=== PATIENT | male | born 1965 | race Caucasian/White ===

== ENCOUNTER 2018-08-17 05:40 | Emergency (ER) | payer SELFPAY ==
[2018-08-17] VITALS (85 sets, daily range): BP systolic 160–228; BP diastolic 92–122; PULSE 65–86; RESP 12–27; TEMP 36.4–36.7; O2SAT 93–99
--- NOTE | 2018-08-17 06:08 | W.ED.GENAD ---
Discharge Plan Disposition Patient Disposition: [facility] Condition: Stable Discharge Details Chief Complaint: Chest Pain Clinical Impression: NSTEMI (non-ST elevated myocardial infarction), Hypertensive urgency Primary Care Provider: Higinio Rasmussen ED Provider: Lolly Yu Home Meds and New Rx's Prescriptions: No Action aspirin [Aspir-81] 81 mg tablet,delayed release (DR/EC) 81 mg PO DAILY RF: 0 atorvastatin 80 mg tablet 80 mg PO QHS RF: 0 carvedilol 12.5 mg tablet 12.5 mg PO BID RF: 0 nitroglycerin 0.4 mg tablet, sublingual 0.4 mg SL Q5-15M PRNRF: 0 Discharge Data Discharge Date/Time-TO BE ENTERED AT DEPARTURE: 08/17/18 13:58 Discharge Physician: Mirina Noble Medical Decision Making <Mirian Noble DO - Last Filed: 08/18/18 03:40> 52-year-old male with a history of chronic tobacco smoking and daily alcohol use who presents with 2 episodes of substernal chest pain since yesterday. EKG notes a rate of 81, sinus, T wave inversion in aVL, there is questionable <1mm ST depression in II and aVF no consistent acute ST depression or elevation. No old EKG to compare. BP significantly elevated on arrival. 222/113. states patient has a history of whitecoat hypertension but states this is higher than usual. Remainder vitals within normal limits. Patient appears anxious. Lungs clear to auscultation. No lower extremity edema. Differential diagnosis includes ACS, anxiety, PE, GERD, gastritis, pancreatitis, hypertensive urgency, dissection, pneumonia. Denies complaint of tearing chest pain so not consistent with dissection. Chest pain is nonexertional and occurred while drinking coffee this morning, so could be possibly of a GI etiology. He admits to difficulty sleeping last night and awoke 2 mornings with pain, so could be more consistent with anxiety which could explain his hypertension. Heart score 2. Will place an IV, cardiac work-up, CT chest, and give a dose of Ativan and reassess. 0650 --BP 160/111. Labs reviewed and unremarkable. Normal white blood cell count. Troponin negative. Lipase negative. 0745 --CT negative for acute findings. Patient states he is completely pain-free. BP improved 179/97. Patient is agreeable to stay for second troponin which will be at 930. 0800 --Case endorsed to Dr. Yu to follow-up on second troponin and final disposition. Medical Records Medical records reviewed: Yes I reviewed the patient's medical records. Imaging Data Radiologic Study: Radiologist's impression: CT Angiography Chest With Contrast EXAM DATE/TIME: 08/17/2018 6:10 AM CLINICAL HISTORY: 52 years old, male; Other: Substernal chest pain, R/O pe/dissection TECHNIQUE: Imaging protocol: Axial computed tomographic angiography images of the chest with intravenous contrast using CT angiography protocol. Coronal and sagittal reformatted images were created and reviewed. 3D rendering: MIP reconstructed images were created and reviewed. Radiation optimization: All CT scans at this facility use at least one of these dose optimization techniques: automated exposure control; mA and/or kV adjustment per patient size (includes targeted exams where dose is matched to clinical indication); or iterative reconstruction. Contrast material: OMNIPAQUE 350; Contrast volume: 67 ml; Contrast route: IV; COMPARISON: No relevant prior studies available. FINDINGS: Pulmonary arteries: No evidence of acute pulmonary embolism. Aorta: Aorta normal caliber without aneurysm, dissection or disruption. Lungs: Mild changes of paraseptal emphysema most pronounced in the lung apices. No consolidative pneumonia or pulmonary edema. Minimal dependent basilar atelectasis. Pleural space: No pleural effusions. No pneumothorax. Heart: Cardiac size normal. No pericardial effusion. No right heart strain. Lymph nodes: Unremarkable. No enlarged lymph nodes. Bones/joints: Mild degenerative changes noted throughout the spine. Soft tissues: Unremarkable. IMPRESSION: 1. No evidence of acute pulmonary embolism. 2. Cardiac size normal. No pericardial effusion. No right heart strain. 3. Aorta normal caliber without aneurysm, dissection or disruption. 4. Mild changes of paraseptal emphysema most pronounced in the lung apices. No consolidative pneumonia or pulmonary edema. Minimal dependent basilar atelectasis. Lab Data Lab results reviewed: Yes I reviewed the patient's lab results. ECG Data Attestation: I personally reviewed and interpreted this ECG (s) as follows: Interpretation: rate of 81, sinus, TWI in aVL, questionable < 1mm ST depression in II and aVF but no acute ST elevation or depression. QTc 448, QRS 100. <Lolly Yu MD - Last Filed: 08/25/18 08:24> Wesley Edward is a 52-year-old man without history of major medical problems who presented to the emergency department with chest pain. Patient was signed out to me by Dr. Noble after initial presentation and work-up with repeat troponin and repeat EKG pending. Repeat troponin positive. Patient reassessed. He states he is currently pain-free and asymptomatic. He reports he feels very well and in his usual state of health. Blood pressure 180/103. [facility] transfer center contacted after reassessment of patient at 10:20 AM, EKG is faxed, awaiting callback from cardiology. Plan for aspirin, heparin. Repeat EKG shows [address] elevation V2 V3, mild inferior and lateral ST depression, no STEMI. We will continue to monitor. Called back by cardiology team at [facility], who accepts patient (accepting physician Dr. Whitney), requests heparin bolus and drip, Plavix 300 mg, 25 mg p.o. metoprolol. Awaiting bed assignment for transfer, I am told by [facility] that they anticipate bed opening shortly this afternoon. Patient continues to remain asymptomatic, pain-free on reassessment. Pt now has bed assignment. Pt continues to report that he feels well and is asymptomatic. Plan for transfer. Repeat troponin >7, EKG repeated, no STEMI. Repeat EKG faxed to transfer center, contacted [facility] cardi[place] team and discussed increase in trop, Pt remains asymptomatic. No further recs at this time. Pt left ED without issue, asymptomatic. Call from EMS after Pt left ED for BP >200/120, Pt without symptoms. I requested SLNG, nitro gtt as needed for BP in HTN emergency range given elevated trop. Medical Records Medical records reviewed: Yes I reviewed the patient's medical records. Lab Data Lab results reviewed: Yes I reviewed the patient's lab results. ECG Data Attestation: I personally reviewed and interpreted this ECG (s) as follows: Interpretation: EKG 9:35 shows sinus rhythm 73 with normal axis, 1mm ALEJANDRINA V2, V3, inferior/lateral STD, no STEMI, non-diagnostic EKG EKG 13:42 shows sinus rhythm 65 with normal axis 1mm ALEJANDRINA v2, V3, STD II, no STEMI, non-diagnostic EKG HPI <Mirian Noble, DO - Last Filed: 08/18/18 03:40> General Mode of arrival: ambulatory. Date/Time Provider Initiated Documentation: 08/17/18 05:51. Limitations to Documentation: no limitations. Information obtained by: patient. HPI Narrative: Patient is a 52-year-old male with a history of chronic tobacco smoking and daily alcohol use who presents with substernal chest pain since yesterday. Patient states he was laying in bed when he developed substernal chest pressure which was present for 1 hour and then resolved. Patient states he awoke this morning at 430 and began drinking coffee and the chest pain returned. He states this morning it felt like a burning chest pain going up through his chest. He states the pain is still present and currently 9/10. He denies any radiation of pain. He admits to shortness of breath with his chest pain yesterday as well as today. He states the chest pain resolved on its own yesterday without any aggravating or alleviating factors. He denies any aggravating or alleviating factors today. He denies any fever, cough, nausea, vomiting, dizziness, recent travel, recent surgery, leg pain or swelling. He also denies any history of anxiety or recent stress. Related Data Home Medications Medication Instructions Recorded Confirmed aspirin 81 mg tablet,delayed 81 mg PO DAILY 08/21/18 08/24/18 release atorvastatin 80 mg tablet 80 mg PO QHS 08/21/18 08/24/18 carvedilol 12.5 mg tablet 12.5 mg PO BID 08/21/18 08/24/18 nitroglycerin 0.4 mg sublingual 0.4 mg SL Q5-15M PRN 08/21/18 08/24/18 tablet Allergies Allergy/AdvReac Type Severity Reaction Status Date / Time No Known Allergies Allergy Unverified 08/24/18 05:39 General Stated Complaint: Chest Pain SUNNI: 3 Review of Systems <Mirian Noble DO - Last Filed: 08/18/18 03:40> Review of Systems All systems reviewed & are unremarkable except as noted in HPI and below Constitutional Reports as per HPI, Denies chills and Denies fever(s) Eyes Denies blurry vision ENT Denies dizziness, Denies sore throat and Denies throat swelling Cardiovascular Reports chest pain and Reports dyspnea Respiratory Denies cough and Reports dyspnea Gastrointestinal Denies abdominal pain, Denies diarrhea and Denies vomiting Genitourinary Denies hematuria and Denies dysuria Musculoskeletal Denies back pain and Denies numbness Integumentary/Breasts Denies lesions and Denies rash Neurologic Denies dizziness, Denies focal weakness and Denies numbness Allergic/Immunologic Denies throat swelling PFSH <Mirian Noble DO - Last Filed: 08/18/18 03:40> Medical History Nicotine dependence Surgical History Arthroplasty of knee Colonoscopy - IV Sedation (09/25/15) Family History Mother Essential hypertension Hyperlipidemia Father Essential hypertension Hyperlipidemia COPD (chronic obstructive pulmonary disease) Asthma Sister No problems noted. Brother No problems noted. Grandfather COPD (chronic obstructive pulmonary disease) Asthma Grandfather Personal history of malignant neoplasm Grandmother No problems noted. Grandmother Myocardial infarction Son No problems noted. Son No problems noted. Social History Smoking/Tobacco Use Status: Current-Occasional Tobacco Type: cigarettes Alcohol Intake: current Alcohol Intake frequency: 0-2 drinks per day Alcohol type: beer Drug use: Occasionally Substance use type: former substance user Do you feel safe at home: Yes Do you feel safe in your relationship?: Yes Exam <Mirian Noble DO - Last Filed: 08/18/18 03:40> Const General: cooperative, healthy appearing, no acute distress and anxious (moderate) Orientation: alert, awake and oriented x3 HENMT Head: normal to inspection Face and sinus: normal facial exam Eyes General: appearance normal, both eyes and all related structures EOM: EOM intact bilaterally Neck Neck: normal visual inspection and No submandibular swelling Lymphatic: no lymphadenopathy noted Chest Chest: normal inspection of the chest and no tenderness Resp Effort & Inspection: normal respiratory effort and able to speak in complete sentences Auscultation: clear to auscultation bilaterally Cardio Rate: regular rate Rhythm: regular rhythm GI Inspection: normal to inspection Palpation: soft, not firm, not rigid and nontender Auscultation: normal bowel sounds Skin General skin exam: no rashes or lesions noted Neuro General: alert, awake and oriented x3 Cognition: normal cognition Speech: speech normal Motor: muscle tone normal throughout Sensory Exam: no sensory deficits noted Extrem General: normal to inspection, full ROM, normal capillary refill, no calf tenderness bilaterally and no edema Psych Appearance: grossly normal Mental Status: mental status grossly normal Speech and Movement: speech and movement normal Affect: normal affect Course <Mirian Noble DO - Last Filed: 08/18/18 03:40> Vital Signs Temperature 98.1 F 08/17/18 05:43 Pulse 84 08/17/18 05:43 Respiratory Rate 20 08/17/18 05:43 Blood Pressure 222/113 H 08/17/18 05:43 Pulse Oximetry 99 08/17/18 05:43 Temperature 98.1 F 08/17/18 05:43 Temperature Source Skin 08/17/18 05:43 Pulse 84 08/17/18 05:43 Respiratory Rate 20 08/17/18 05:52 Respiratory Effort 08/17/18 05:52 Respiratory Depth Normal 08/17/18 05:52 Respiratory Pattern Normal 08/17/18 05:52 Blood Pressure 222/113 H 08/17/18 05:43 Blood Pressure Position Supine 08/17/18 05:43 Pulse Oximetry 99 08/17/18 05:43 Oxygen Delivery Method Room Air 08/17/18 05:43 Oxygen Flow Rate 0 08/17/18 05:43 Pain Level 9 08/17/18 05:58 Sign Out <Mirian Noble DO - Last Filed: 08/18/18 03:40> Sign Out Data: Sign Out Comment: Follow-up on second troponin and final disposition. If second troponin negative and patient still pain-free and BP improves and remains stable, can discharge home with plan for follow-up with primary care doctor. Last updated by Mirian Noble DO at 08/17/18 08:24
[2018-08-17] MEDS: LORazepam 2 MG/ML VIAL 0.5 MG IVP (06:12)
[2018-08-17 06:15] LABS: Abs Immature Grans 0.01 k/cumm (0.0-0.09); Absolute Basophil Count 0.07 k/cumm (0.0-0.2); Absolute Eosinophil Count 0.36 k/cumm (0.0-0.7); Absolute Lymphocyte Count 2.35 k/cumm (1.2-3.4); Absolute Monocyte Count 0.69 k/cumm (0.11-0.7); Absolute Neutrophil Count 4.15 k/cumm (1.2-6.7); Basophils % 0.9; Eosinophils % 4.7; HCT 51.7 % (40.0-50.0); HGB 17.7 g/dL (13.5-17.5); Immature Grans % 0.1; Lymphocytes % 30.8; Mean Corp. HGB Concentration 34.2 g/dL (32.0-36.0); Mean Corpuscular Hemoglobin 32.1 pg (27.0-33.0); Mean Corpuscular Volume 93.8 fL (80-95); Mean Platelet Volume 11.8 fL (8.0-11.0); Neutrophils % 54.5; Platelet Count 286 x1000/uL (130-400); RBC 5.51 m/cumm (4.50-6.00); RBC Distribution Width 13.6 % (11.8-14.1); White Blood Cell Count 7.63 k/cumm (4.4-10.8)
[2018-08-17 06:44] LABS: ALT 23 U/L (12-78); AST 11 U/L (15-37); Albumin 3.7 g/dL (3.4-5.0); Alkaline Phosphatase 61 U/L (46-116); Anion Gap 11.8 mmol/L (3-11); BUN 10 mg/dL (7-18); Bilirubin, Total 0.3 mg/dL (0.2-1.0); CO2 26.2 mmol/L (21.0-32.0); CREATININE 0.94 mg/dL (0.70-1.30); Calcium 8.6 mg/dL (8.5-10.1); Chloride 103 mmol/L (98-107); Glucose 111 mg/dL (70-100); Magnesium 1.9 mg/dL (1.8-2.4); Potassium 4.1 mmol/L (3.5-5.1); Sodium 141 mmol/L (136-145); Total Protein 7.5 g/dL (6.4-8.2)
[2018-08-17 06:47] LABS: Troponin I < 0.05 ng/mL (0.00-0.06)
[2018-08-17] MEDS: Omnipaque 350 MG/ML 100 ML BTL IJ (06:53)
[2018-08-17] MEDS: Normal Saline Flush 10 ML SYR IVP (06:54)
--- NOTE | 2018-08-17 07:08 | DI.CT_ITS ---
SYMPTOM/DIAGNOSIS: SUBSTERNAL CHEST PAIN, ? PE OR DISSECTION PE CHEST CT: CT angiography was performed with multi slice acquisition and multi planar and 3D reconstruction. There are no prior comparison exams. There is no evidence of pulmonary emboli or aortic dissection. There is mild paraseptal emphysema at the upper lobes. No infiltrate, effusion or pneumothorax is seen. There is no evidence of adenopathy. The heart size is normal. IMPRESSION: Mild upper lobe paraseptal emphysema. No acute abnormality.
[2018-08-17 07:19] LABS: Lipase 153 U/L (73-393)
--- NOTE | 2018-08-17 07:24 | DI.VRAD_ITS ---
EXAM: CT Angiography Chest With Contrast EXAM DATE/TIME: 08/17/2018 6:10 AM CLINICAL HISTORY: 52 years old, male; Other: Substernal chest pain, R/O pe/dissection TECHNIQUE: Imaging protocol: Axial computed tomographic angiography images of the chest with intravenous contrast using CT angiography protocol. Coronal and sagittal reformatted images were created and reviewed. 3D rendering: MIP reconstructed images were created and reviewed. Radiation optimization: All CT scans at this facility use at least one of these dose optimization techniques: automated exposure control; mA and/or kV adjustment per patient size (includes targeted exams where dose is matched to clinical indication); or iterative reconstruction. Contrast material: OMNIPAQUE 350; Contrast volume: 67 ml; Contrast route: IV; COMPARISON: No relevant prior studies available. FINDINGS: Pulmonary arteries: No evidence of acute pulmonary embolism. Aorta: Aorta normal caliber without aneurysm, dissection or disruption. Lungs: Mild changes of paraseptal emphysema most pronounced in the lung apices. No consolidative pneumonia or pulmonary edema. Minimal dependent basilar atelectasis. Pleural space: No pleural effusions. No pneumothorax. Heart: Cardiac size normal. No pericardial effusion. No right heart strain. Lymph nodes: Unremarkable. No enlarged lymph nodes. Bones/joints: Mild degenerative changes noted throughout the spine. Soft tissues: Unremarkable. IMPRESSION: 1. No evidence of acute pulmonary embolism. 2. Cardiac size normal. No pericardial effusion. No right heart strain. 3. Aorta normal caliber without aneurysm, dissection or disruption. 4. Mild changes of paraseptal emphysema most pronounced in the lung apices. No consolidative pneumonia or pulmonary edema. Minimal dependent basilar atelectasis. Dictated and Authenticated by: Chris Rogers MD. Ordering:SAIDA Vela MD
[2018-08-17] MEDS: Normal Saline 500 ML IV (08:35)
[2018-08-17 10:02] LABS: Troponin I 2.47 ng/mL (0.00-0.06)
[2018-08-17] MEDS: Aspirin 81 MG CHEW 324 MG CH (10:26)
[2018-08-17] MEDS: Heparin 5,000 UNITS/ML VIAL 5000 UNITS (10:54)
[2018-08-17] MEDS: Metoprolol 25 MG TAB PO (12:11)
[2018-08-17] MEDS: Clopidogrel 300 MG TAB PO (12:11)
--- NOTE | 2018-08-17 12:30 | NUR.NOTE ---
Nursing Note: Per whitney Mercer for Pt to eat Popsicle and other clear liquids.
[2018-08-17 13:21] LABS: Troponin I 7.13 ng/mL (0.00-0.06)
--- NOTE | 2018-08-17 13:37 | NUR.NOTE ---
Nursing Note: MD Yu made aware of Critical trop level. Verbal orders received to perform repeat EKG
== END 2018-08-17 13:58 | disposition short-term general hospital (02) ==
PROVIDERS: Physician Assistant; Emergency Provider Student in an Organized Health Care Education/Training Program; PCP Family Medicine
DX: I21.4 Non-ST elevation (NSTEMI) myocardial infarction (principal); I16.0 Hypertensive urgency; I10 Essential (primary) hypertension
CPT/HCPCS: 36415; 71275; 80053; 83690; 93005; 96361; 96365; 96375; 99285; 83735; 84484; 85025; 93010; J1644; J2060; J3490

== ENCOUNTER 2018-08-24 05:27 | Inpatient (IN) | payer SELFPAY ==
[2018-08-24] VITALS (123 sets, daily range): BP systolic 123–193; BP diastolic 73–113; PULSE 57–79; RESP 10–21; TEMP 36.6–36.8; O2SAT 89–100
--- NOTE | 2018-08-24 05:43 | W.ED.GENAD ---
Discharge Plan Disposition Patient Disposition: [facility] Condition: Improving Discharge Details Chief Complaint: Chest Pain Clinical Impression: Non-ST elevated myocardial infarction (non-STEMI) Primary Care Provider: Higinio Rasmussen ED Provider: Jayjay Noe Home Meds and New Rx's Prescriptions: No Action aspirin [Aspir-81] 81 mg tablet,delayed release (DR/EC) 81 mg PO DAILY RF: 0 atorvastatin 80 mg tablet 80 mg PO QHS RF: 0 carvedilol 12.5 mg tablet 12.5 mg PO BID RF: 0 nitroglycerin 0.4 mg tablet, sublingual 0.4 mg SL Q5-15M PRNRF: 0 Medical Decision Making 52-year-old male presents from home with 2 episodes of chest pain yesterday. He said the first was at 10:30 PM which resolved with a single nitroglycerin. He had recurrent chest pain earlier this morning for which he took a second nitroglycerin, had ongoing discomfort and presented to the ER. It was associated with diaphoresis. It is nonexertional. He arrives to the ED with ongoing discomfort. Placed on a monitoring coordinator, IV established, laboratories obtained. Patient given a second nitroglycerin. Records obtained and reviewed from [facility]. The patient underwent cardiac catheterization on August 18 with results being nonobstructive coronary artery disease. He underwent TTE which showed no wall motion abnormalities. He was admitted for aggressive blood pressure control with amlodipine, lisinopril and carvedilol. He states he had low blood pressures in the 90s for which his bodywork therapist recommended cessation of lisinopril and amlodipine. He states he has had some success in cutting down his tobacco use. Would note that the patient underwent CT scan of the chest on August 17 without evidence of PE or aortic dissection. Following the administration of 2 sublingual nitroglycerin the patient's discomfort abated; his blood pressure was initially 187/113 and with resolution of his pain is 140/90. Labs note a troponin of 0.1. Chemistries otherwise with potassium of 5.2, BUN elevated to 22, creatinine 0.9. Case discussed with on-call cardiology, Dr Foster. Given the negative studies this week at [facility], he recommends admission to the hospital, trending of the cardiac troponin, resumption of blood pressure control by resuming the patient's Norvasc at 5mg/day. He feels this is most consistent with demand ischemia, but if the troponin begins to rise, asked that cardiology be recontacted. Lab Data Lab results reviewed: Yes I reviewed the patient's lab results. Laboratory Results - last 24 hr 08/24/18 08/24/18 08/24/18 05:41 05:41 05:41 WBC 7.87 RBC 5.28 Hgb 17.1 Hct 49.0 MCV 92.8 MCH 32.4 MCHC 34.9 RDW 12.6 Plt Count 260 MPV 11.7 H Immature Gran % 0.1 Neutrophils % 63.5 Lymphocytes % 21.0 Monocytes % 10.7 Eosinophils % 4.1 Basophils % 0.6 Absolute Neutrophils 5.00 Absolute Lymphocytes 1.65 Absolute Monocytes 0.84 H Absolute Eosinophils 0.32 Absolute Basophils 0.05 PT 9.8 INR 1.0 Sodium 134 L Potassium 5.2 H Chloride 101 Carbon Dioxide 22.8 Anion Gap 10.2 BUN 22 H Creatinine 0.96 Estimated GFR/1.73 m2 >= 60.00 Glucose 102 H Calcium 9.5 Magnesium 2.0 Total Bilirubin 0.6 AST 21 ALT 37 Alkaline Phosphatase 70 Troponin I 0.10 H* Total Protein 7.9 Albumin 4.0 ECG Data Attestation: I personally reviewed and interpreted this ECG (s) as follows: Prior ECG tracings: available for review Interpretation: EKG reveals a normal sinus rhythm with a rate of 66, the QRS is narrow, there is nonspecific ST segment depression in the inferior leads Repeat EKG with normal sinus rhythm, rate of 61, J-point elevation present in the anterior leads and T wave inversion present in leads III and aVF HPI General Mode of arrival: ambulatory. Date/Time Provider Initiated Documentation: 08/24/18 05:36. Limitations to Documentation: no limitations. Information obtained by: patient. History of Present Illness 52 year old M presents to the emergency department with the chief complaint of Chest pain, improved with nitroglycerin, described as moderate, severe and similar to prior episodes, Quality is described as constant, and is localized to the chest. Patient reports no radiation. Patient started experiencing this hour(s) and it has been intermittent. No relieving factors improve symptom(s), No exacerbating factors reported . Patient notes chest pain and diaphoresis. Patient did receive the following treatments prior to arrival, other (Nitroglycerin) Related Data Home Medications Medication Instructions Recorded Confirmed aspirin 81 mg tablet,delayed 81 mg PO DAILY 08/21/18 08/24/18 release atorvastatin 80 mg tablet 80 mg PO QHS 08/21/18 08/24/18 carvedilol 12.5 mg tablet 12.5 mg PO BID 08/21/18 08/24/18 nitroglycerin 0.4 mg sublingual 0.4 mg SL Q5-15M PRN 08/21/18 08/24/18 tablet Allergies Allergy/AdvReac Type Severity Reaction Status Date / Time No Known Allergies Allergy Unverified 08/24/18 05:39 General Stated Complaint: Chest Pain SUNNI: 3 Review of Systems Review of Systems Cardiac cath performed first week of August reported negative for blockage. Patient states he recently stopped taking Norvasc due to low blood pressures. He has otherwise been well. 6 systems reviewed and negative [facility] Medical History Nicotine dependence Surgical History Arthroplasty of knee Colonoscopy - IV Sedation (09/25/15) Family History Mother Essential hypertension Hyperlipidemia Father Essential hypertension Hyperlipidemia COPD (chronic obstructive pulmonary disease) Asthma Sister No problems noted. Brother No problems noted. Grandfather COPD (chronic obstructive pulmonary disease) Asthma Grandfather Personal history of malignant neoplasm Grandmother No problems noted. Grandmother Myocardial infarction Son No problems noted. Son No problems noted. Social History Smoking/Tobacco Use Status: Current-Occasional Tobacco Type: cigarettes Alcohol Intake: current Alcohol Intake frequency: 0-2 drinks per day Alcohol type: beer Drug use: Occasionally Substance use type: former substance user Do you feel safe at home: Yes Do you feel safe in your relationship?: Yes Exam Narrative Exam Narrative: GEN: awake, alert, oriented 3. Pleasant, well groomed, interactive. HEAD: Normocephalic, atraumatic ENT: Mucous membranes moist, oropharynx unremarkable, External ear exam unremarkable EYES: PERRL, EOMI NECK: Full ROM, no NATIVIDAD, no menigismus CHEST/RESP: Nontender, clear to auscultation bilateral, no wheeze/rhonchi/rales CARDIOVASCULAR: RRR, no murmur, rub callum. 2+ Rad pulse bilateral ABDOMEN: Soft, nontender, no mass. +Bowel sounds EXT: Full ROM, no edema, no rash Neuro: Grossly normal neurologic exam, conversant, interactive. Psych: Speech fluent, thoughts congruent, affect normal Course Vital Signs Temperature 36.8 C 08/24/18 05:33 Pulse 66 08/24/18 05:33 Respiratory Rate 20 08/24/18 05:33 Blood Pressure 187/113 H 08/24/18 05:33 Pulse Oximetry 100 08/24/18 05:33 Temperature 36.8 C 08/24/18 05:33 Temperature Source Temporal Artery Scan 08/24/18 05:33 Pulse 66 08/24/18 05:33 Respiratory Rate 20 08/24/18 05:39 Respiratory Effort 08/24/18 05:39 Respiratory Depth Shallow 08/24/18 05:39 Respiratory Pattern Normal 08/24/18 05:39 Blood Pressure 187/113 H 08/24/18 05:33 Blood Pressure Position Supine 08/24/18 05:33 Pulse Oximetry 100 08/24/18 05:33 Oxygen Delivery Method Room Air 08/24/18 05:33 Oxygen Flow Rate 0 08/24/18 05:33 Pain Level 7 08/24/18 05:39
--- NOTE | 2018-08-24 05:48 | ED.GENADUL_ITS ---
Discharge Plan Disposition Patient Disposition: [facility] INPATIENT Condition: Improving Discharge Details Chief Complaint: Chest Pain Clinical Impression: Non-ST elevated myocardial infarction (non-STEMI) Primary Care Provider: Higinio Rasmussen ED Provider: Jayjay Noe Home Meds and New Rx's Prescriptions: No Action aspirin [Aspir-81] 81 mg tablet,delayed release (DR/EC) 81 mg PO DAILY RF: 0 atorvastatin 80 mg tablet 80 mg PO QHS RF: 0 carvedilol 12.5 mg tablet 12.5 mg PO BID RF: 0 nitroglycerin 0.4 mg tablet, sublingual 0.4 mg SL Q5-15M PRNRF: 0 Medical Decision Making 52-year-old male presents from home with 2 episodes of chest pain yesterday. He said the first was at 10:30 PM which resolved with a single nitroglycerin. He had recurrent chest pain earlier this morning for which he took a second nitroglycerin, had ongoing discomfort and presented to the ER. It was associated with diaphoresis. It is nonexertional. He arrives to the ED with ongoing discomfort. Placed on a military science teacher, IV established, laboratories obtained. Patient given a second nitroglycerin. Records obtained and reviewed from [facility]. The patient underwent cardiac catheterization on August 18 with results being nonobstructive coronary artery disease. He underwent TTE which showed no wall motion abnormalities. He was admitted for aggressive blood pressure control with amlodipine, lisinopril and carvedilol. He states he had low blood pressures in the 90s for which his pulping machine operator recommended cessation of lisinopril and amlodipine. He states he has had some success in cutting down his tobacco use. Would note that the patient underwent CT scan of the chest on August 17 without evidence of PE or aortic dissection. Following the administration of 2 sublingual nitroglycerin the patient's discomfort abated; his blood pressure was initially 187/113 and with resolution of his pain is 140/90. Labs note a troponin of 0.1. Chemistries otherwise with potassium of 5.2, BUN elevated to 22, creatinine 0.9. Case discussed with on- call cardiology, Dr Foster. Given the negative studies this week at [facility], he recommends admission to the hospital, trending of the cardiac troponin, resumption of blood pressure control by resuming the patient's Norvasc at 5mg/day. He feels this is most consistent with demand ischemia, but if the troponin begins to rise, asked that cardiology be recontacted. Lab Data Lab results reviewed: Yes I reviewed the patient's lab results. Laboratory Results - last 24 hr 08/24/18 08/24/18 08/24/18 05:41 05:41 05:41 WBC 7.87 RBC 5.28 Hgb 17.1 Hct 49.0 MCV 92.8 MCH 32.4 MCHC 34.9 RDW 12.6 Plt Count 260 MPV 11.7 H Immature Gran % 0.1 Neutrophils % 63.5 Lymphocytes % 21.0 Monocytes % 10.7 Eosinophils % 4.1 Basophils % 0.6 Absolute Neutrophils 5.00 Absolute Lymphocytes 1.65 Absolute Monocytes 0.84 H Absolute Eosinophils 0.32 Absolute Basophils 0.05 PT 9.8 INR 1.0 Sodium 134 L Potassium 5.2 H Chloride 101 Carbon Dioxide 22.8 Anion Gap 10.2 BUN 22 H Creatinine 0.96 Estimated GFR/1.73 m2 >= 60.00 Glucose 102 H Calcium 9.5 Magnesium 2.0 Total Bilirubin 0.6 AST 21 ALT 37 Alkaline Phosphatase 70 Troponin I 0.10 H* Total Protein 7.9 Albumin 4.0 ECG Data Attestation: I personally reviewed and interpreted this ECG (s) as follows: Prior ECG tracings: available for review Interpretation: EKG reveals a normal sinus rhythm with a rate of 66, the QRS is narrow, there is nonspecific ST segment depression in the inferior leads Repeat EKG with normal sinus rhythm, rate of 61, J-point elevation present in the anterior leads and T wave inversion present in leads III and aVF HPI General Mode of arrival: ambulatory . Date/Time Provider Initiated Documentation: 08/24/18 05:36 . Limitations to Documentation: no limitations . Information obtained by: patient . History of Present Illness 52 year old M presents to the emergency department with the chief complaint of Chest pain, improved with nitroglycerin, described as moderate, severe and similar to prior episodes, Quality is described as constant, and is localized to the chest. Patient reports no radiation. Patient started experiencing this hour(s) and it has been intermittent. No relieving factors improve symptom(s), No exacerbating factors reported . Patient notes chest pain and diaphoresis. Patient did receive the following treatments prior to arrival, other (Nitroglycerin) Related Data Home Medications Medication Instructions Recorded Confirmed aspirin 81 mg tablet,delayed 81 mg PO DAILY 08/21/18 08/24/18 release atorvastatin 80 mg tablet 80 mg PO QHS 08/21/18 08/24/18 carvedilol 12.5 mg tablet 12.5 mg PO BID 08/21/18 08/24/18 nitroglycerin 0.4 mg sublingual 0.4 mg SL Q5-15M PRN 08/21/18 08/24/18 tablet Allergies Allergy/AdvReac Type Severity Reaction Status Date / Time No Known Allergies Allergy Unverified 08/24/18 05:39 General Stated Complaint: Chest Pain SUNNI: 3 Review of Systems Review of Systems Cardiac cath performed first week of August reported negative for blockage. Patient states he recently stopped taking Norvasc due to low blood pressures. He has otherwise been well. 6 systems reviewed and negative [facility] Medical History Nicotine dependence Surgical History Arthroplasty of knee Colonoscopy - IV Sedation (09/25/15) Family History Mother Essential hypertension Hyperlipidemia Father Essential hypertension Hyperlipidemia COPD (chronic obstructive pulmonary disease) Asthma Sister No problems noted. Brother No problems noted. Grandfather COPD (chronic obstructive pulmonary disease) Asthma Grandfather Personal history of malignant neoplasm Grandmother No problems noted. Grandmother Myocardial infarction Son No problems noted. Son No problems noted. Social History Smoking/Tobacco Use Status: Current-Occasional Tobacco Type: cigarettes Alcohol Intake: current Alcohol Intake frequency: 0-2 drinks per day Alcohol type: beer Drug use: Occasionally Substance use type: former substance user Do you feel safe at home: Yes Do you feel safe in your relationship?: Yes Exam Narrative Exam Narrative: GEN: awake, alert, oriented 3. Pleasant, well groomed, interactive. HEAD: Normocephalic, atraumatic ENT: Mucous membranes moist, oropharynx unremarkable, External ear exam unremarkable EYES: PERRL, EOMI NECK: Full ROM, no NATIVIDAD, no menigismus CHEST/RESP: Nontender, clear to auscultation bilateral, no wheeze/rhonchi/rales CARDIOVASCULAR: RRR, no murmur, rub callum. 2+ Rad pulse bilateral ABDOMEN: Soft, nontender, no mass. +Bowel sounds EXT: Full ROM, no edema, no rash Neuro: Grossly normal neurologic exam, conversant, interactive. Psych: Speech fluent, thoughts congruent, affect normal Course Vital Signs Temperature 36.8 C 08/24/18 05:33 Pulse 66 08/24/18 05:33 Respiratory Rate 20 08/24/18 05:33 Blood Pressure 187/113 H 08/24/18 05:33 Pulse Oximetry 100 08/24/18 05:33 Temperature 36.8 C 08/24/18 05:33 Temperature Source Temporal Artery Scan 08/24/18 05:33 Pulse 66 08/24/18 05:33 Respiratory Rate 20 08/24/18 05:39 Respiratory Effort 08/24/18 05:39 Respiratory Depth Shallow 08/24/18 05:39 Respiratory Pattern Normal 08/24/18 05:39 Blood Pressure 187/113 H 08/24/18 05:33 Blood Pressure Position Supine 08/24/18 05:33 Pulse Oximetry 100 08/24/18 05:33 Oxygen Delivery Method Room Air 08/24/18 05:33 Oxygen Flow Rate 0 08/24/18 05:33 Pain Level 7 08/24/18 05:39
--- NOTE | 2018-08-24 05:50 | DI.RAD_ITS ---
SYMPTOM/DIAGNOSIS: CHEST PAIN PORTABLE AP CHEST: 08/24 The heart is not enlarged. Lungs appear clear and well expanded. CONCLUSION: No evidence of acute process.
[2018-08-24 05:59] LABS: Abs Immature Grans 0.01 k/cumm (0.0-0.09); Absolute Basophil Count 0.05 k/cumm (0.0-0.2); Absolute Eosinophil Count 0.32 k/cumm (0.0-0.7); Absolute Lymphocyte Count 1.65 k/cumm (1.2-3.4); Absolute Monocyte Count 0.84 k/cumm (0.11-0.7); Basophils % 0.6; Eosinophils % 4.1; HGB 17.1 g/dL (13.5-17.5); Immature Grans % 0.1; Mean Corp. HGB Concentration 34.9 g/dL (32.0-36.0); Mean Corpuscular Hemoglobin 32.4 pg (27.0-33.0); Mean Corpuscular Volume 92.8 fL (80-95); Mean Platelet Volume 11.7 fL (8.0-11.0); Monocytes % 10.7; Neutrophils % 63.5; Platelet Count 260 x1000/uL (130-400); RBC 5.28 m/cumm (4.50-6.00); RBC Distribution Width 12.6 % (11.8-14.1); White Blood Cell Count 7.87 k/cumm (4.4-10.8)
[2018-08-24] MEDS: Aspirin 81 MG CHEW 324 MG CH (05:59)
--- NOTE | 2018-08-24 06:04 | DI.VRAD_ITS ---
EXAM: XR Chest, 1 View EXAM DATE/TIME: 08/24/2018 5:49 AM CLINICAL HISTORY: 52 years old, male; Chest pain; Type not specified TECHNIQUE: Imaging protocol: XR of the chest, 1 view. COMPARISON: CT CHEST PE CTA 08/17/2018 6:57 AM FINDINGS: Lungs: Unremarkable. No consolidation. Pleural space: Unremarkable. No evidence of pneumothorax. Heart/Mediastinum: Unremarkable. Heart size within normal limits for technique. Bones/joints: Unremarkable. IMPRESSION: No acute findings. Dictated and Authenticated by: Allen Rivas MD. Ordering:ADRIENNE Ro MD
[2018-08-24 06:07] LABS: Prothrombin Time 9.8 sec (9.3-11.0)
[2018-08-24 06:14] LABS: ALT 37 U/L (12-78); AST 21 U/L (15-37); Alkaline Phosphatase 70 U/L (46-116); Anion Gap 10.2 mmol/L (3-11); BUN 22 mg/dL (7-18); Bilirubin, Total 0.6 mg/dL (0.2-1.0); CO2 22.8 mmol/L (21.0-32.0); CREATININE 0.96 mg/dL (0.70-1.30); Calcium 9.5 mg/dL (8.5-10.1); Chloride 101 mmol/L (98-107); Glucose 102 mg/dL (70-100); Potassium 5.2 mmol/L (3.5-5.1); Sodium 134 mmol/L (136-145); Total Protein 7.9 g/dL (6.4-8.2)
[2018-08-24] MEDS: Normal Saline 1,000 ML 150 ML IV (06:43)
--- NOTE | 2018-08-24 07:36 | W.PM.HP.N ---
Date of service: 08/24/18 Time of Service: 11:42 Assessment and Plan (1) Chest pain: Current visit: Yes Status: Acute In setting of uncontrolled HTN with significant elevation in systolic blood pressure. Also with concurrent mild, equivocal elevation in troponin. Resolved with NTG and improved blood pressure control. Mr. Edward has Nonobstructive CAD by [facility] earlier this month, and ECHO showing a normal LVEF and lack of wall motion abnormalities. CP and troponin elevation are very likely demand related. Will trend troponins, and continue attempts at blood pressure control. (2) Demand ischemia of myocardium: Current visit: Yes Status: Acute As above. (3) Hypertensive emergency: Current visit: Yes Status: Acute Appears improved since admission. Patient initially on OTIS-I, CCB, and BB following discharge from [facility], with Lisinopril and Amlodipine discontinued due to development of hypotension. Continue BB therapy, restart CCB, and monitor blood pressure carefully. Patient reports worsening blood pressure while in the hospital as compared to home (he utilizes a blood pressure monitor at home). Goal is for reasonable control prior to discharge, with close follow-up as an outpatient. (4) Hypertension: Current visit: Yes Status: Chronic As above. (5) Nonobstructive atherosclerosis of coronary artery: Current visit: Yes Status: Acute By [facility] earlier this month. Continue high potency statin, daily aspirin, and BB therapy. Monitor serial cardiac biomarkers. (6) DVT prophylaxis: Current visit: Yes Status: Acute SC Lovenox. History of Present Illness Chief Complaint: Chest Pain Narrative: 52 year old man with prior history of uncontrolled HTN and Hypertensive Emergency, being admitted from [facility] Emergency Department on 08/24 with a diagnosis of Hypertensive Emergency. Mr. Edward has a history of tobacco abuse, prior cocaine abuse in remission, and HTN. He originally presented to [facility] Emergency Department in early August with complaints of chest pain, and found to have a significant elevation in both blood pressure and troponin. He was transferred at that time to [facility], and ultimately diagnosed with Hypertensive Emergency and NSTEMI Type II - work-up included CTA of the chest here that was negative, [facility] reported as with nonobstructive CAD (40% proximal LAD, 40% Ostial segment of first diag, 45% RCA), and an ECHO showing normal LVEF without wall motion abnormalities at [facility]. His blood pressure was controlled with CCB, OTIS-I, and BB therapy, and he was discharged in stable condition. However, the patient reported onset of symptomatic hypotension following discharge, and after discussion with his physican at [facility] his OTIS-I and CCB were discontinued. He presented back to [facility] ED last evening with complaints of chest pain, and again noted to have significant elevation in blood pressure along with a minimal bump in his troponin. He was referred for admission for further evaluation and treatment. This morning Mr. Edward reports improvement in his chest pain and symptoms overall. He received NTG while in the ED, with improvement in blood pressure. No other overnight events reported. Remains afebrile. Review of Systems Review of Systems All systems reviewed & are unremarkable except as noted in HPI and below PFSH Medical History Tobacco abuse (Chronic) Demand ischemia of myocardium (Acute) Hypertension (Chronic) Hypertensive emergency (Acute) Nicotine dependence Surgical History Arthroplasty of knee Colonoscopy - IV Sedation (09/25/15) Family History Mother Essential hypertension Hyperlipidemia Father Essential hypertension Hyperlipidemia COPD (chronic obstructive pulmonary disease) Asthma Sister No problems noted. Brother No problems noted. Grandfather COPD (chronic obstructive pulmonary disease) Asthma Grandfather Personal history of malignant neoplasm Grandmother No problems noted. Grandmother Myocardial infarction Son No problems noted. Son No problems noted. Social History Smoking/Tobacco Use Status: Current-Occasional Tobacco Type: cigarettes Alcohol Intake: current Alcohol Intake frequency: 0-2 drinks per day Alcohol type: beer Drug use: Occasionally Substance use type: former substance user Do you feel safe at home: Yes Do you feel safe in your relationship?: Yes Meds Home Medications Medication Instructions Recorded Confirmed Type aspirin 81 mg tablet,delayed 81 mg PO DAILY 08/21/18 08/24/18 History release atorvastatin 80 mg tablet 80 mg PO QHS 08/21/18 08/24/18 History carvedilol 12.5 mg tablet 12.5 mg PO BID 08/21/18 08/24/18 History nitroglycerin 0.4 mg sublingual 0.4 mg SL Q5-15M PRN 08/21/18 08/24/18 History tablet Allergies Allergy/AdvReac Type Severity Reaction Status Date / Time No Known Allergies Allergy Unverified 08/24/18 05:39 Exam Narrative Exam Narrative: General: Patient appears comfortable, AAOX3, NAD Neck: Supple CV: Regular, nontachycardic, S1S2, No rubs, murmurs, or gallops. Pulmonary: Clear to auscultation bilaterally, no crackles, wheezing, or rhonchi Abdomen: + Bowel Sounds, soft, nontender, nondistended Vascular: No lower extremity edema Neurologic: CN II-XII grossly intact. No focal deficits. Psych: Normal mood and affect. Results Imaging Chest x-ray: report reviewed Additional studies: Exam(s) 08/24/2018 a RAD:XR portable chest AP SYMPTOM/DIAGNOSIS: CHEST PAIN PORTABLE AP CHEST: 08/24 The heart is not enlarged. Lungs appear clear and well expanded. CONCLUSION: No evidence of acute process. Labs : 08/24/18 05:41 08/24/18 05:41 Laboratory Results - last 24 hr 08/24/18 08/24/18 08/24/18 05:41 05:41 05:41 WBC 7.87 RBC 5.28 Hgb 17.1 Hct 49.0 MCV 92.8 MCH 32.4 MCHC 34.9 RDW 12.6 Plt Count 260 MPV 11.7 H Immature Gran % 0.1 Neutrophils % 63.5 Lymphocytes % 21.0 Monocytes % 10.7 Eosinophils % 4.1 Basophils % 0.6 Absolute Neutrophils 5.00 Absolute Lymphocytes 1.65 Absolute Monocytes 0.84 H Absolute Eosinophils 0.32 Absolute Basophils 0.05 PT 9.8 INR 1.0 Sodium 134 L Potassium 5.2 H Chloride 101 Carbon Dioxide 22.8 Anion Gap 10.2 BUN 22 H Creatinine 0.96 Estimated GFR/1.73 m2 >= 60.00 Glucose 102 H Calcium 9.5 Magnesium 2.0 Total Bilirubin 0.6 AST 21 ALT 37 Alkaline Phosphatase 70 Troponin I 0.10 H* Total Protein 7.9 Albumin 4.0 Last Vital Signs Temp 36.8 C 08/24/18 05:33 Pulse 59 L 08/24/18 06:01 Resp 19 08/24/18 06:01 BP 147/86 H 08/24/18 06:01 Pulse Ox 97 08/24/18 06:01
--- NOTE | 2018-08-24 07:44 | HPE_ITS ---
Date of service: 08/24/18 Time of Service: 11:42 Assessment and Plan (1) Chest pain: Current visit: Yes Status: Acute In setting of uncontrolled HTN with significant elevation in systolic blood pressure. Also with concurrent mild, equivocal elevation in troponin. Resolved with NTG and improved blood pressure control. Mr. Edward has Nonobstructive CAD by [facility] earlier this month, and ECHO showing a normal LVEF and lack of wall motion abnormalities. CP and troponin elevation are very likely demand related. Will trend troponins, and continue attempts at blood pressure control. (2) Demand ischemia of myocardium: Current visit: Yes Status: Acute As above. (3) Hypertensive emergency: Current visit: Yes Status: Acute Appears improved since admission. Patient initially on OTIS-I, CCB, and BB following discharge from [facility], with Lisinopril and Amlodipine discontinued due to development of hypotension. Continue BB therapy, restart CCB, and monitor blood pressure carefully. Patient reports worsening blood pressure while in the hospital as compared to home (he utilizes a blood pressure monitor at home). Goal is for reasonable control prior to discharge, with close follow-up as an outpatient. (4) Hypertension: Current visit: Yes Status: Chronic As above. (5) Nonobstructive atherosclerosis of coronary artery: Current visit: Yes Status: Acute By [facility] earlier this month. Continue high potency statin, daily aspirin, and BB therapy. Monitor serial cardiac biomarkers. (6) DVT prophylaxis: Current visit: Yes Status: Acute SC Lovenox. History of Present Illness Chief Complaint: Chest Pain Narrative: 52 year old man with prior history of uncontrolled HTN and Hypertensive Emergency, being admitted from [facility] Emergency Department on 08/24 with a diagnosis of Hypertensive Emergency. Mr. Edward has a history of tobacco abuse, prior cocaine abuse in remission, and HTN. He originally presented to [facility] Emergency Department in early August with complaints of chest pain, and found to have a significant elevation in both blood pressure and troponin. He was transferred at that time to [facility], and ultimately diagnosed with Hypertensive Emergency and NSTEMI Type II - work-up included CTA of the chest here that was negative, [facility] reported as with nonobstructive CAD (40% proximal LAD, 40% Ostial segment of first diag, 45% RCA), and an ECHO showing normal LVEF without wall motion abnormalities at [facility]. His blood pressure was controlled with CCB, OTIS-I, and BB therapy, and he was discharged in stable condition. However, the patient reported onset of symptomatic hypotension following discharge, and after discussion with his physican at [facility] his OTIS-I and CCB were discontinued. He presented back to [facility] ED last evening with complaints of chest pain, and again noted to have significant elevation in blood pressure along with a minimal bump in his troponin. He was referred for admission for further evaluation and treatment. This morning Mr. Edward reports improvement in his chest pain and symptoms overall. He received NTG while in the ED, with improvement in blood pressure. No other overnight events reported. Remains afebrile. Review of Systems Review of Systems All systems reviewed & are unremarkable except as noted in HPI and below PFSH Medical History Tobacco abuse (Chronic) Demand ischemia of myocardium (Acute) Hypertension (Chronic) Hypertensive emergency (Acute) Nicotine dependence Surgical History Arthroplasty of knee Colonoscopy - IV Sedation (09/25/15) Family History Mother Essential hypertension Hyperlipidemia Father Essential hypertension Hyperlipidemia COPD (chronic obstructive pulmonary disease) Asthma Sister No problems noted. Brother No problems noted. Grandfather COPD (chronic obstructive pulmonary disease) Asthma Grandfather Personal history of malignant neoplasm Grandmother No problems noted. Grandmother Myocardial infarction Son No problems noted. Son No problems noted. Social History Smoking/Tobacco Use Status: Current-Occasional Tobacco Type: cigarettes Alcohol Intake: current Alcohol Intake frequency: 0-2 drinks per day Alcohol type: beer Drug use: Occasionally Substance use type: former substance user Do you feel safe at home: Yes Do you feel safe in your relationship?: Yes Meds Home Medications Medication Instructions Recorded Confirmed Type aspirin 81 mg tablet,delayed 81 mg PO DAILY 08/21/18 08/24/18 History release atorvastatin 80 mg tablet 80 mg PO QHS 08/21/18 08/24/18 History carvedilol 12.5 mg tablet 12.5 mg PO BID 08/21/18 08/24/18 History nitroglycerin 0.4 mg sublingual 0.4 mg SL Q5-15M PRN 08/21/18 08/24/18 History tablet Allergies Allergy/AdvReac Type Severity Reaction Status Date / Time No Known Allergies Allergy Unverified 08/24/18 05:39 Exam Narrative Exam Narrative: General: Patient appears comfortable, AAOX3, NAD Neck: Supple CV: Regular, nontachycardic, S1S2, No rubs, murmurs, or gallops. Pulmonary: Clear to auscultation bilaterally, no crackles, wheezing, or rhonchi Abdomen: + Bowel Sounds, soft, nontender, nondistended Vascular: No lower extremity edema Neurologic: CN II-XII grossly intact. No focal deficits. Psych: Normal mood and affect. Results Imaging Chest x-ray: report reviewed Additional studies: Exam(s) 08/24/2018 a RAD:XR portable chest AP SYMPTOM/DIAGNOSIS: CHEST PAIN PORTABLE AP CHEST: 08/24 The heart is not enlarged. Lungs appear clear and well expanded. CONCLUSION: No evidence of acute process. Labs : 08/24/18 05:41 08/24/18 05:41 Laboratory Results - last 24 hr 08/24/18 08/24/18 08/24/18 05:41 05:41 05:41 WBC 7.87 RBC 5.28 Hgb 17.1 Hct 49.0 MCV 92.8 MCH 32.4 MCHC 34.9 RDW 12.6 Plt Count 260 MPV 11.7 H Immature Gran % 0.1 Neutrophils % 63.5 Lymphocytes % 21.0 Monocytes % 10.7 Eosinophils % 4.1 Basophils % 0.6 Absolute Neutrophils 5.00 Absolute Lymphocytes 1.65 Absolute Monocytes 0.84 H Absolute Eosinophils 0.32 Absolute Basophils 0.05 PT 9.8 INR 1.0 Sodium 134 L Potassium 5.2 H Chloride 101 Carbon Dioxide 22.8 Anion Gap 10.2 BUN 22 H Creatinine 0.96 Estimated GFR/1.73 m2 >= 60.00 Glucose 102 H Calcium 9.5 Magnesium 2.0 Total Bilirubin 0.6 AST 21 ALT 37 Alkaline Phosphatase 70 Troponin I 0.10 H* Total Protein 7.9 Albumin 4.0 Last Vital Signs Temp 36.8 C 08/24/18 05:33 Pulse 59 L 08/24/18 06:01 Resp 19 08/24/18 06:01 BP 147/86 H 08/24/18 06:01 Pulse Ox 97 08/24/18 06:01
[2018-08-24] MEDS: amLODIPine 5 MG TAB PO ×3 (07:45→19:30)
[2018-08-24 08:22] LABS: Troponin I 0.11 ng/mL (0.00-0.06)
[2018-08-24 09:13] LABS: *AMPHETAMINES SCREEN URINE Negative (Negative); *BARBITURATES SCREEN URINE Negative (Negative); *BENZODIAZEPINES SCREEN URINE Negative (Negative); Cannabinoids THC POSITIVE (Negative); Cocaine Screen,Urine Negative (Negative); METHADONE URINE SCREEN Negative (Negative); OPIATES URINE SCREEN Negative (Negative)
[2018-08-24 09:23] LABS: Tricyclic Antidepressants Negative (Negative)
[2018-08-24] MEDS: Carvedilol 12.5 MG TAB PO ×2 (09:56→19:28)
[2018-08-24] MEDS: Enoxaparin 40 MG/0.4 ML SYR SC (09:56)
[2018-08-24] MEDS: Aspirin E.C. 81 MG TABEC PO (09:56)
[2018-08-24 11:00] LABS: Troponin I 0.11 ng/mL (0.00-0.06)
[2018-08-24 14:49] LABS: Troponin I 0.11 ng/mL (0.00-0.06)
[2018-08-24] MEDS: Normal Saline Flush 10 ML SYR IVP (17:12)
[2018-08-24] MEDS: Atorvastatin 40 MG TAB 80 MG PO (19:28)
[2018-08-25] VITALS (22 sets, daily range): BP systolic 84–169; BP diastolic 52–93; PULSE 54–64; RESP 12–28; TEMP 36.5–37.3; O2SAT 94–97
[2018-08-25] MEDS: Normal Saline Flush 10 ML SYR IVP (07:01)
[2018-08-25 07:31] LABS: Abs Immature Grans 0.01 k/cumm (0.0-0.09); Absolute Basophil Count 0.05 k/cumm (0.0-0.2); Absolute Eosinophil Count 0.25 k/cumm (0.0-0.7); Absolute Monocyte Count 0.83 k/cumm (0.11-0.7); Absolute Neutrophil Count 6.14 k/cumm (1.2-6.7); Basophils % 0.6; Eosinophils % 2.8; HCT 46.8 % (40.0-50.0); Immature Grans % 0.1; Mean Corp. HGB Concentration 34.2 g/dL (32.0-36.0); Mean Corpuscular Hemoglobin 31.9 pg (27.0-33.0); Mean Corpuscular Volume 93.4 fL (80-95); Mean Platelet Volume 12.1 fL (8.0-11.0); Monocytes % 9.3; Neutrophils % 69.2; Platelet Count 247 x1000/uL (130-400); RBC 5.01 m/cumm (4.50-6.00); RBC Distribution Width 12.7 % (11.8-14.1); White Blood Cell Count 8.88 k/cumm (4.4-10.8)
[2018-08-25] MEDS: amLODIPine 5 MG TAB PO (07:33)
[2018-08-25] MEDS: Carvedilol 12.5 MG TAB PO (07:33)
[2018-08-25] MEDS: Aspirin E.C. 81 MG TABEC PO (07:33)
[2018-08-25 07:56] LABS: Anion Gap 13.2 mmol/L (3-11); BUN 19 mg/dL (7-18); CO2 21.8 mmol/L (21.0-32.0); CREATININE 0.77 mg/dL (0.70-1.30); Chloride 101 mmol/L (98-107); Glucose 91 mg/dL (70-100); Sodium 136 mmol/L (136-145)
--- NOTE | 2018-08-25 08:17 | PDOC.CMIN ---
- If Service Date Differs Date of service: 08/25/18 Time of Service: 08:18 Care Management Initial Assess REASON FOR HOSPITALIZATION:: Chest pain PAST MEDICAL HISTORY/PAST SURGICAL HISTORY:: Medical History: Tobacco abuse (Chronic). Demand ischemia of myocardium (Acute). Hypertension (Chronic). Hypertensive emergency (Acute). Nicotine dependence. Surgical History: Arthroplasty of knee. Colonoscopy - IV Sedation (09/25/15) PREVIOUS FUNCTIONAL STATUS/SOCIAL/FAMILY SUPPORTS:: Himanshu lives in a single family home with his girlfriend Bhavna and two sons. 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 CURRENT FUNCTIONAL STATUS:: Wesley was sitting up in bed when CM visited. he was pleasant and friendly and readily responded to questions. He states he is feeling much better and would like to go home. Wesley is currently uninsured. He thinks that Bhavna is working on getting them set up with Medicaid which he has had in the past. provided Wesley with Patient Financial Assistance packet, [facility] informational brochure and information about the [facility] Portal. ADVANCE DIRECTIVES:: On file at [facility] Has patient been provided with information about the portal?: Yes Did the patient sign up for the portal?: No CODE STATUS:: Full Code INSURANCE COVERAGE / FINANCIAL ISSUES:: Medicaid [place] CURRENT HOME/COMMUNITY SERVICES/EQUIPMENT:: none PRIMARY CARE PHYSICIAN:: Higinio Rasmussen MD POTENTIAL DISCHARGE NEEDS:: Follow up with PCP and discharge plan of care PATIENT/FAMILY EDUCATION NEEDS:: Discharge plan, limitations,follow up shannon, [employer]. ANTICIPATED BARRIERS TO DISCHARGE:: none TRANSPORTATION:: via private vehicle with family PLAN:: Wesley will be discharged home with no new services. He has been provided with information about financial assistance and community resources.He will follow up with his PCP and discharge plan of care.
--- NOTE | 2018-08-25 08:26 | INITIAL_ITS ---
- If Service Date Differs Date of service: 08/25/18 Time of Service: 08:18 Care Management Initial Assess REASON FOR HOSPITALIZATION:: Chest pain PAST MEDICAL HISTORY/PAST SURGICAL HISTORY:: Medical History: Tobacco abuse (Chronic). Demand ischemia of myocardium (Acute). Hypertension (Chronic). Hypertensive emergency (Acute). Nicotine dependence. Surgical History: Arthroplasty of knee. Colonoscopy - IV Sedation (09/25/15) PREVIOUS FUNCTIONAL STATUS/SOCIAL/FAMILY SUPPORTS:: Himanshu lives in a single family home with his girlfriend Bhavna and two sons. 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 CURRENT FUNCTIONAL STATUS:: Wesley was sitting up in bed when CM visited. he was pleasant and friendly and readily responded to questions. He states he is feeling much better and would like to go home. Wesley is currently uninsured. He thinks that Bhavna is working on getting them set up with Medicaid which he has had in the past. provided Wesley with Patient Financial Assistance packet, [facility] informational brochure and information about the [facility] Portal. ADVANCE DIRECTIVES:: On file at [facility] Has patient been provided with information about the portal?: Yes Did the patient sign up for the portal?: No CODE STATUS:: Full Code INSURANCE COVERAGE / FINANCIAL ISSUES:: Medicaid [place] CURRENT HOME/COMMUNITY SERVICES/EQUIPMENT:: none PRIMARY CARE PHYSICIAN:: Higinio Rasmussen MD POTENTIAL DISCHARGE NEEDS:: Follow up with PCP and discharge plan of care PATIENT/FAMILY EDUCATION NEEDS:: Discharge plan, limitations,follow up shannon, Ask Me Three. ANTICIPATED BARRIERS TO DISCHARGE:: none TRANSPORTATION:: via private vehicle with family PLAN:: Wesley will be discharged home with no new services. He has been provided with information about financial assistance and community resources.He will follow up with his PCP and discharge plan of care.
[2018-08-25] MEDS: Enoxaparin 40 MG/0.4 ML SYR SC (09:18)
--- NOTE | 2018-08-25 14:20 | W.PM.DS.N ---
Date of service: 08/25/18 Time of Service: 14:20 DS: Diagnosis Discharge Diagnosis (1) Chest pain: Status: Acute (2) Demand ischemia of myocardium: Status: Acute (3) Hypertensive emergency: Status: Acute (4) Hypertension: Status: Chronic (5) Nonobstructive atherosclerosis of coronary artery: Status: Acute Discharge Plan Disposition Patient Disposition: HOME Condition: Stable Discharge Details Reason For Visit: HYPERTENSION, NSTEMI Admit Date/Time: 08/24/18 07:33 Admit Provider: Demarcus Smith Attending Provider: Demarcus Smith Primary Care Provider: Higinio Rasmussen Hospital Course Hospital Course: Chief Complaint: Chest Pain HPI: 52 year old man with prior history of uncontrolled HTN and Hypertensive Emergency, being admitted from [facility] Emergency Department on 08/24 with a diagnosis of Hypertensive Emergency. Mr. Edward has a history of tobacco abuse, prior cocaine abuse in remission, and HTN. He originally presented to [facility] Emergency Department in early August with complaints of chest pain, and found to have a significant elevation in both blood pressure and troponin. He was transferred at that time to [facility], and ultimately diagnosed with Hypertensive Emergency and NSTEMI Type II - work-up included CTA of the chest here that was negative, [facility] reported as with nonobstructive CAD (40% proximal LAD, 40% Ostial segment of first diag, 45% RCA), and an ECHO showing normal LVEF without wall motion abnormalities at [facility]. His blood pressure was controlled with CCB, OTIS-I, and BB therapy, and he was discharged in stable condition. However, the patient reported onset of symptomatic hypotension following discharge, and after discussion with his physican at [facility] his OTIS-I and CCB were discontinued. He presented back to [facility] ED last evening with complaints of chest pain, and again noted to have significant elevation in blood pressure along with a minimal bump in his troponin. He was referred for admission for further evaluation and treatment. Hospital Course: (1) Chest pain: In setting of uncontrolled HTN with significant elevation in systolic blood pressure. Also with concurrent mild, equivocal elevation in troponin. Resolved with NTG and improved blood pressure control. Mr. Edward has Nonobstructive CAD by [facility] earlier this month, and ECHO showing a normal LVEF and lack of wall motion abnormalities. CP and troponin elevation are very likely demand related. Troponins trended and remained unchanged, with mild and equivocal elevation only (0.1). Mr. Edward remains asymptomatic. Continue attempts at blood pressure control. (2) Demand ischemia of myocardium: As above. (3) Hypertensive emergency: Appears improved since admission. Patient initially on OTIS-I, CCB, and BB following discharge from [facility], with Lisinopril and Amlodipine discontinued due to development of hypotension. BB therapy was continued, and CCB restarted and titrated. Patient reports worsening blood pressure while in the hospital as compared to home (he utilizes a blood pressure monitor at home). Goal is for reasonable control prior to discharge, with close follow-up as an outpatient. Current systolic values mostly in the 120's- 150's, with a low of 118 and high of 169. One time blood pressure recorded at 4 am of 84/52 while patient was asleep - unsure of accuracy of this reading. Please note that patient becomes symptomatic when his systolic values are low in the 90's, or elevated past 190. (4) Hypertension: As above. (5) Nonobstructive atherosclerosis of coronary artery: By [facility] earlier this month. Continue high potency statin, daily aspirin, and BB therapy. Monitor serial cardiac biomarkers. (6) DVT prophylaxis: Was maintained on SC Lovenox. Home Meds and New Rx's Prescriptions: New amlodipine 5 mg Tablet 5 mg PO BID Qty: 60 RF: 0 Continued aspirin [Aspir-81] 81 mg tablet,delayed release (DR/EC) 81 mg PO DAILY RF: 0 atorvastatin 80 mg tablet 80 mg PO QHS RF: 0 carvedilol 12.5 mg tablet 12.5 mg PO BID RF: 0 nitroglycerin 0.4 mg tablet, sublingual 0.4 mg SL Q5-15M PRNRF: 0 Discharge Instructions Activity:: No Strenuous Activity Equipment/Supplies:: No Equipment Needed Diet:: Low Sodium Discharge Orders Discharge Orders: Discharge Order (Routine); Ordered 08/25/18 Ordered By: Demacrus Smith DS: Data Vitals/I&O Vitals and I&O: Vital Signs Temperature 37.3 C 08/25/18 12:15 Temperature Source Temporal Artery Scan 08/25/18 12:15 Pulse 58 L 08/25/18 09:13 Pulse 61 08/25/18 09:13 Respiratory Rate 28 H 08/25/18 09:13 Respiratory Effort 07/09/19 12:15 Respiratory Depth Normal 08/25/18 12:15 Respiratory Pattern Normal 08/25/18 12:15 Blood Pressure 137/80 08/25/18 09:13 Blood Pressure Mean 93 08/25/18 09:13 Blood Pressure Position Sitting 08/25/18 12:15 Pulse Oximetry 96 08/25/18 04:06 Oxygen Delivery Method Room Air 08/25/18 12:15 Oxygen Flow Rate 0 08/25/18 12:15 Pain Level 0 08/25/18 12:15 Intake & Output 08/24/18 08/25/18 08/25/18 23:59 11:59 23:59 Intake Total 550 / 842.5 480 / 680 200 / 680 Output Total 700 / 1100 625 / 625 Balance -150 / -257.5 -145 / 55 200 / 55 Weight 70 kg Intake: IV 10 / 302.5 Oral 540 / 540 480 / 680 200 / 680 Output: Urine 700 / 1100 625 / 625 Other: Urine Color Light Margi Light Margi Urine Appearance Clear Clear Urine Odor Normal Normal Voiding Methods Diaper Urinal Completed studies during hospitalization [Text1]: Exam(s) 08/24/2018 a RAD:XR portable chest AP SYMPTOM/DIAGNOSIS: CHEST PAIN PORTABLE AP CHEST: 08/24 The heart is not enlarged. Lungs appear clear and well expanded. CONCLUSION: No evidence of acute process. Labs on day of discharge: Labs from last 24 hours 08/25/18 08/25/18 08/24/18 06:20 06:20 14:10 WBC 8.88 RBC 5.01 Hgb 16.0 Hct 46.8 MCV 93.4 MCH 31.9 MCHC 34.2 RDW 12.7 Plt Count 247 MPV 12.1 H Immature Gran % 0.1 Neutrophils % 69.2 Lymphocytes % 18.0 Monocytes % 9.3 Eosinophils % 2.8 Basophils % 0.6 Absolute Neutrophils 6.14 Absolute Lymphocytes 1.60 Absolute Monocytes 0.83 H Absolute Eosinophils 0.25 Absolute Basophils 0.05 Sodium 136 Potassium 5.0 Chloride 101 Carbon Dioxide 21.8 Anion Gap 13.2 H BUN 19 H Creatinine 0.77 Estimated GFR/1.73 m2 >= 60.00 Glucose 91 Calcium 9.0 Magnesium 2.0 Troponin I 0.11 H* [facility] Medical History Tobacco abuse (Chronic) Demand ischemia of myocardium (Acute) Hypertension (Chronic) Hypertensive emergency (Acute) Nicotine dependence Surgical History Arthroplasty of knee Colonoscopy - IV Sedation (09/25/15) Family History Mother Essential hypertension Hyperlipidemia Father Essential hypertension Hyperlipidemia COPD (chronic obstructive pulmonary disease) Asthma Sister No problems noted. Brother No problems noted. Grandfather COPD (chronic obstructive pulmonary disease) Asthma Grandfather Personal history of malignant neoplasm Grandmother No problems noted. Grandmother Myocardial infarction Son No problems noted. Son No problems noted. Social History Smoking/Tobacco Use Status: Current-Occasional Tobacco Type: cigarettes Alcohol Intake: current Alcohol Intake frequency: 0-2 drinks per day Alcohol type: beer Drug use: Occasionally Substance use type: former substance user Do you feel safe at home: Yes Do you feel safe in your relationship?: Yes
--- NOTE | 2018-08-25 14:31 | DSE_ITS ---
Date of service: 08/25/18 Time of Service: 14:20 DS: Diagnosis Discharge Diagnosis (1) Chest pain: Status: Acute (2) Demand ischemia of myocardium: Status: Acute (3) Hypertensive emergency: Status: Acute (4) Hypertension: Status: Chronic (5) Nonobstructive atherosclerosis of coronary artery: Status: Acute Discharge Plan Disposition Patient Disposition: HOME Condition: Stable Discharge Details Reason For Visit: HYPERTENSION, NSTEMI Admit Date/Time: 08/24/18 07:33 Admit Provider: Demarcus Smith Attending Provider: Demarcus Smith Primary Care Provider: Higinio Rasmussen Hospital Course Hospital Course: Chief Complaint: Chest Pain HPI: 52 year old man with prior history of uncontrolled HTN and Hypertensive Emergency, being admitted from [facility] Emergency Department on 08/24 with a diagnosis of Hypertensive Emergency. Mr. Edward has a history of tobacco abuse, prior cocaine abuse in remission, and HTN. He originally presented to [facility] Emergency Department in early August with complaints of chest pain, and found to have a significant elevation in both blood pressure and troponin. He was transferred at that time to [facility] [facility], and ultimately diagnosed with Hypertensive Emergency and NSTEMI Type II - work-up included CTA of the chest here that was negative, [facility] reported as with nonobstructive CAD (40% proximal LAD, 40% Ostial segment of first diag, 45% RCA), and an ECHO showing normal LVEF without wall motion abnormalities at [facility]. His blood pressure was controlled with CCB, OTIS-I, and BB therapy, and he was discharged in stable condition. However, the patient reported onset of symptomatic hypotension following discharge, and after discussion with his physican at [facility] [facility] his OTIS-I and CCB were discontinued. He presented back to [facility] ED last evening with complaints of chest pain, and again noted to have significant elevation in blood pressure along with a minimal bump in his troponin. He was referred for admission for further evaluation and treatment. Hospital Course: (1) Chest pain: In setting of uncontrolled HTN with significant elevation in systolic blood pressure. Also with concurrent mild, equivocal elevation in troponin. Resolved with NTG and improved blood pressure control. Mr. Edward has Nonobstructive CAD by [facility] earlier this month, and ECHO showing a normal LVEF and lack of wall motion abnormalities. CP and troponin elevation are very likely demand related. Troponins trended and remained unchanged, with mild and equivocal elevation only (0.1). Mr. Edward remains asymptomatic. Continue attempts at blood pressure control. (2) Demand ischemia of myocardium: As above. (3) Hypertensive emergency: Appears improved since admission. Patient initially on OTIS-I, CCB, and BB following discharge from [facility] [place], with Lisinopril and Amlodipine discontinued due to development of hypotension. BB therapy was continued, and CCB restarted and titrated. Patient reports worsening blood pressure while in the hospital as compared to home (he utilizes a blood pressure monitor at home). Goal is for reasonable control prior to discharge, with close follow-up as an outpatient. Current systolic values mostly in the 120's- 150's, with a low of 118 and high of 169. One time blood pressure recorded at 4 am of 84/52 while patient was asleep - unsure of accuracy of this reading. Please note that patient becomes symptomatic when his systolic values are low in the 90's, or elevated past 190. (4) Hypertension: As above. (5) Nonobstructive atherosclerosis of coronary artery: By [facility] earlier this month. Continue high potency statin, daily aspirin, and BB therapy. Monitor serial cardiac biomarkers. (6) DVT prophylaxis: Was maintained on [place] Lovenox. Home Meds and New Rx's Prescriptions: New amlodipine 5 mg Tablet 5 mg PO BID Qty: 60 RF: 0 Continued aspirin [Aspir-81] 81 mg tablet,delayed release (DR/EC) 81 mg PO DAILY RF: 0 atorvastatin 80 mg tablet 80 mg PO QHS RF: 0 carvedilol 12.5 mg tablet 12.5 mg PO BID RF: 0 nitroglycerin 0.4 mg tablet, sublingual 0.4 mg SL Q5-15M PRNRF: 0 Discharge Instructions Activity:: No Strenuous Activity Equipment/Supplies:: No Equipment Needed Diet:: Low Sodium Discharge Orders Discharge Orders: Discharge Order (Routine); Ordered 08/25/18 Ordered By: Demarcus Smith DS: Data Vitals/I&O Vitals and I&O: Vital Signs Temperature 37.3 C 08/25/18 12:15 Temperature Source Temporal Artery Scan 08/25/18 12:15 Pulse 58 L 08/25/18 09:13 Pulse 61 08/25/18 09:13 Respiratory Rate 28 H 08/25/18 09:13 Respiratory Effort 07/09/19 12:15 Respiratory Depth Normal 08/25/18 12:15 Respiratory Pattern Normal 08/25/18 12:15 Blood Pressure 137/80 08/25/18 09:13 Blood Pressure Mean 93 08/25/18 09:13 Blood Pressure Position Sitting 08/25/18 12:15 Pulse Oximetry 96 08/25/18 04:06 Oxygen Delivery Method Room Air 08/25/18 12:15 Oxygen Flow Rate 0 08/25/18 12:15 Pain Level 0 08/25/18 12:15 Intake & Output 08/24/18 08/25/18 08/25/18 23:59 11:59 23:59 Intake Total 550 / 842.5 480 / 680 200 / 680 Output Total 700 / 1100 625 / 625 Balance -150 / -257.5 -145 / 55 200 / 55 Weight 70 kg Intake: IV 10 / 302.5 Oral 540 / 540 480 / 680 200 / 680 Output: Urine 700 / 1100 625 / 625 Other: Urine Color Light Margi Light Margi Urine Appearance Clear Clear Urine Odor Normal Normal Voiding Methods Diaper Urinal Completed studies during hospitalization [Text1]: Exam(s) 08/24/2018 a RAD:XR portable chest AP SYMPTOM/DIAGNOSIS: CHEST PAIN PORTABLE AP CHEST: 08/24 The heart is not enlarged. Lungs appear clear and well expanded. CONCLUSION: No evidence of acute process. Labs on day of discharge: Labs from last 24 hours 08/25/18 08/25/18 08/24/18 06:20 06:20 14:10 WBC 8.88 RBC 5.01 Hgb 16.0 Hct 46.8 MCV 93.4 MCH 31.9 MCHC 34.2 RDW 12.7 Plt Count 247 MPV 12.1 H Immature Gran % 0.1 Neutrophils % 69.2 Lymphocytes % 18.0 Monocytes % 9.3 Eosinophils % 2.8 Basophils % 0.6 Absolute Neutrophils 6.14 Absolute Lymphocytes 1.60 Absolute Monocytes 0.83 H Absolute Eosinophils 0.25 Absolute Basophils 0.05 Sodium 136 Potassium 5.0 Chloride 101 Carbon Dioxide 21.8 Anion Gap 13.2 H BUN 19 H Creatinine 0.77 Estimated GFR/1.73 m2 >= 60.00 Glucose 91 Calcium 9.0 Magnesium 2.0 Troponin I 0.11 H* [facility] Medical History Tobacco abuse (Chronic) Demand ischemia of myocardium (Acute) Hypertension (Chronic) Hypertensive emergency (Acute) Nicotine dependence Surgical History Arthroplasty of knee Colonoscopy - IV Sedation (09/25/15) Family History Mother Essential hypertension Hyperlipidemia Father Essential hypertension Hyperlipidemia COPD (chronic obstructive pulmonary disease) Asthma Sister No problems noted. Brother No problems noted. Grandfather COPD (chronic obstructive pulmonary disease) Asthma Grandfather Personal history of malignant neoplasm Grandmother No problems noted. Grandmother Myocardial infarction Son No problems noted. Son No problems noted. Social History Smoking/Tobacco Use Status: Current-Occasional Tobacco Type: cigarettes Alcohol Intake: current Alcohol Intake frequency: 0-2 drinks per day Alcohol type: beer Drug use: Occasionally Substance use type: former substance user Do you feel safe at home: Yes Do you feel safe in your relationship?: Yes
--- NOTE | 2018-08-25 15:07 | PDOC.CMDIS ---
- If Service Date Differs Date of service: 08/25/18 Time of Service: 15:07 LACE Index Scoring Tool - Questions: Length of Stay (in days): 2 Acuity (Admit via E.D.?): Yes E.D. Visits: 2 - Answers: Total Score: 7 Risk of Readmission: Low Risk Care Management Discharge Reason for Hospitalization: Chest pain Discharge Plan: Wesley will be discharged home with no additional services. He will follow up with his PCPand discharge plan of care. He will be transported by his girlfriend Bhavna via private vehicle. Patient/Family Education Needs: Discharge plan, limitations, follow up plan and Ask Me Three.
== END 2018-08-25 15:20 | disposition home or self-care (01) | DRG 305 ==
LOC: ER 07:49 → ICU 08:33
PROVIDERS: Physician Assistant; Admitting Provider Internal Medicine; Emergency Provider Emergency Medicine; PCP Family Medicine; Visit Provider Internal Medicine
DX: I16.1 Hypertensive emergency (principal); I24.8 Other forms of acute ischemic heart disease; I10 Essential (primary) hypertension; I25.10 Atherosclerotic heart disease of native coronary artery without angina pectoris; F17.210 Nicotine dependence, cigarettes, uncomplicated; F14.11 Cocaine abuse, in remission
CPT/HCPCS: 36415; 80048; 80053; 80307; 93005; 96360; 96361; 99222; 99238; 99285; J1650; 71045; 83735; 84484; 85025; 85610; 93010; 99284

== ENCOUNTER 2021-05-23 02:54 | Outpatient (CLI) | payer OTHER, SELFPAY ==
[2021-05-23 17:13] LABS: Calculated LDL 31 mg/dL (<100); Cholesterol 113 mg/dL (<200); HDL Cholesterol 64 mg/dL (40-60); Triglyceride 94 mg/dL (<150)
[2021-05-23 22:25] LABS: PSA, Screening 1.8 ng/mL (<=3.5)
== END 2021-05-23 02:55 | disposition home or self-care (01) ==
LOC: LBO 02:54
PROVIDERS: PCP Family Medicine; Visit Provider Family Medicine
DX: E78.5 Hyperlipidemia, unspecified (principal); Z12.5 Encounter for screening for malignant neoplasm of prostate
CPT/HCPCS: 36415; 80061; 84153

== ENCOUNTER 2022-11-08 07:54 | Outpatient (CLI) | payer OTHER, SELFPAY | END 2022-11-08 07:55 | disposition home or self-care (01) | LOC: DI.CARD 07:55 | PROVIDERS: PCP Family Medicine; Visit Provider Internal Medicine Cardiovascular Disease | DX: I21.4 Non-ST elevation (NSTEMI) myocardial infarction (principal); R07.9 Chest pain, unspecified | CPT/HCPCS: 93010 ==

== ENCOUNTER 2022-11-15 09:02 | Day surgery (SDC) | payer OTHER, SELFPAY ==
--- NOTE | 2022-11-14 21:45 | W.COLOREPORT ---
Date of service: 11/15/22 Time of Service: 11:00 Colonoscopy Report Date of procedure: 11/15/22 Pre-op diagnosis general: Adenomatous polyps Post-op diagnosis procedure note: other (External hemorrhoids/adenomatous polyp/diverticula.) Surgeon: Kinga Sorensen Anesthesia Type: General:No Airway Estimated blood loss (mL): 2 Pathology: other Complications: None Disposition: same day Prep: Miralax/Dulcolax Findings: 36 Procedure Description: After informed consent was obtained the patient was taken to the procedure room and placed in a left decubitous position. Monitors were applied and a time out was done. The patients name, date of , procedure, allergies to medications and metal in their body was reviewed. The patient was then sedated. Once sedated and comfortable a rectal exam was done. External exam was shows external hemorrhoids of moderate degree with no acute thrombosis.. Internal rectal exam revealed a normal sphincter tone and no palpable masses. The prostate normal bowel. The scope was then introduced and retrofelexed. No internal hemorrhoids were identified. The scope was then advanced to the cecum without difficulty. The TI and appendiceal orifice were identified. The prep was BBPS 3 in all segments for a total of 9. The scope was then slowly retracted over 36 minutes back into the rectum. He had 2 polyps at 20 cm. 1 polyp is a flat 1 cm polyp that is removed with a cold snare. The other is a 0.75 cm pedunculated polyp that is removed with a hot biting forcep. All specimen is retrieved and no bleeding is noted. He does have minor diverticula confined to the sigmoid colon- these are very small mouth did not very numerous diverticula. There is no signs of active bleeding or infection. The scope was removed and the patient was woken up and taken back to Same day surgery in stable condition. The patient tolerated the procedure well and there were no immediate complications. Follow up: The patient should follow up in 3-5 years unless they develop changes in bowel habits or other new gastrointestinal complaints.
--- NOTE | 2022-11-14 21:46 | PDOC.DSDIS_ITS ---
Date of service: 11/15/22 Time of Service: 11:03 Discharge Plan Disposition Patient Disposition: Home Condition: Good Discharge Details Reason For Visit: Colon cancer screening Attending Provider: Kinga Sorensen Primary Care Provider: Higinio Rasmussen Home Meds and New Rx's Prescriptions: No Action multivitamin tablet 1 tab PO DAILY amlodipine 5 mg tablet 5 mg PO BID Qty: 180 3RF atorvastatin 80 mg tablet 80 mg PO QHS Qty: 90 3RF sildenafil 100 mg tablet 100 mg PO DAILY PRN (Reason: sexual activity) Qty: 12 3RF Rx Instructions: administer 30 minutes to 4 hours before activity aspirin [Aspir-81] 81 mg tablet,delayed release (DR/EC) 81 mg PO DAILY nitroglycerin 0.4 mg tablet, sublingual 0.4 mg SL Q5-15M PRN carvedilol 12.5 mg tablet 12.5 mg PO BID Qty: 180 3RF Rx Instructions: must administer with a meal/food Discharge Instructions Additional Instructions: DSU Colonoscopy Post- Op Instructions Instructions for Everyone who is given Anesthesia: For your safety, please do the following for the next twenty-four (24) hours: *Do Not operate a motor vehicle (car, truck, motorcycle, etc.) *Do Not drink alcoholic beverages or use any recreational drugs for the first 24 hours or while taking pain medications. The medications in your body may have a reaction that can be dangerous. *Do Not make any important decisions or sign any important papers. Findings: -Diverticula: Make sure you are moving your bowels on a regular basis and not straining to go to the bathroom. If you are having issues with straining/constipation, then we recommend you start a fiber product such as Metamucil daily. Polyps- Follow up: My office will send a letter in 2 to 3 weeks time with the results of the biopsy and when we want you to repeat the colonoscopy, most likely 3 to 5 years time. - 1. No lifting over 20 pounds or strenuous activity for the first 24 hours after your procedure. After 24 hours there are no restrictions on your activity but you may feel fatigued for a few days. 2. After you arrive home you may have a light meal and return to your normal diet as you can tolerate it without feeling sick to your stomach. 3. You may have a bloated, gaseous feeling in your belly (abdomen) after a colonoscopy. Passing gas and belching will help. Walking or lying down on your left side with your knees flexed may relieve the discomfort. Call the office at [phone] (Office) or [phone] (Hospital) right away if you notice any of the following: a.Vomiting of blood or ?coffee ground stools?. b.Rectal bleeding 1Tbsp, blood clots or continuous bleeding. c.Severe belly (abdominal) pain. d.A hard distended belly (abdomen) and an inability to pass gas. 4. Please don?t expect to have a normal BM (bowel movement) for 2-3 days after your procedure. 5. If there are questions regarding the findings of your procedure, please contact your doctor 6. If you are unable to contact your doctor with a problem, contact the hospital at [phone]. 7. Continue all your regular medications unless directed otherwise. I understand the above instructions and have no questions. Signature of Patient or Adult Escort Name of Responsible Adult Escort Signature of Nurse Date/Time Activity:: See above Diet:: See above Discharge Orders Discharge Orders: Discharge Order (Routine); Ordered 11/15/22 Ordered By: Kinga Sorensen DS: Diagnosis Discharge Diagnosis (1) NSTEMI (non-ST elevated myocardial infarction): Status: Acute (2) Excessive consumption of ethanol: Status: Acute (3) Tubular adenoma: Status: Acute Asessment and Plan: The patient is seen and examined after their colonoscopy.? The patient has been able to pass gas.? They are not having abdominal pain.? They have been able to tolerate liquids and a snack.? They do not have any nausea or vomiting.? They are not having any chest pain or shortness of breath.??? They are not having any rectal bleeding. Their vital signs have been stable-see nursing notes. We discussed findings during their colonoscopy, and any biopsies that were done/polyps that were removed. The patient will be sent a letter with any biopsy results, and when to repeat the colonoscopy.-see discharge instructions. Patient was given explicit instructions to follow-up regarding colonoscopy-refer to discharge instructions.? We reviewed resumption of medications. Patient verbalized understanding and discharged in stable and satisfactory condition- See nursing notes. (4) Nonobstructive atherosclerosis of coronary artery: Status: Acute (5) Tobacco abuse: Status: Chronic (6) Demand ischemia of myocardium: Status: Acute (7) Hypertension: Status: Chronic (8) Nicotine dependence: (9) Diverticula of colon: Status: Acute
[2022-11-15 09:27] VITALS: BP 148/84; PULSE 55; RESP 18; TEMP 36.7; O2SAT 98
[2022-11-15] MEDS: Lactated Ringers 1,000 ML 80 ML IV (09:40)
--- NOTE | 2022-11-15 09:47 | W.ANESPRE ---
General Info Date of Service Date Performed: 11/15/22 Height: 5 ft 10 in Weight: 68.1 kg Body Mass Index (BMI): 21.5 Surgical Procedure: Operation Date: 11/15/22 10:35 Proposed Procedure Side Surgeon keyur Sorensen, DO Meds Allergies and Home Medications Allergies Allergy/AdvReac Type Severity Reaction Status Date / Time No Known Allergies Allergy Verified 11/15/22 09:26 Home Medication Medication Instructions Recorded aspirin 81 mg tablet,delayed 81 mg PO DAILY 08/21/18 release (Aspir-) nitroglycerin 0.4 mg sublingual 0.4 mg sublingual Q5-15M PRN 08/21/18 tablet multivitamin 1 tab PO DAILY 08/26/18 amlodipine 5 mg tablet 5 mg PO BID #180 tabs 07/04/22 atorvastatin 80 mg tablet 80 mg PO QHS #90 tabs 07/04/22 sildenafil 100 mg tablet 100 mg PO DAILY PRN sexual 07/04/22 activity #12 tabs carvedilol 12.5 mg tablet 12.5 mg PO BID #180 tabs 07/30/22 Current Visit Medications: Current Medications Generic Name Dose Route Start Last Admin Trade Name Freq PRN Reason Stop Dose Admin Hyoscyamine Sulfate 0.125 mg 11/15/22 04:23 Hyoscyamine 0.125 Mg Sl/Oral/Chew SL 12/15/22 04:22 DIRECTED PRN Ringer's Solution 1,000 mls @ 80 mls/hr 11/15/22 06:00 IV 11/15/22 23:59 INFUSION [facility] IV Miscellaneous Supplies 1 each 11/15/22 06:00 Iv Access IV 11/15/22 23:59 DIRECTED [facility] Ondansetron HCl 4 mg 11/15/22 04:23 Ondansetron 4 Mg/2 Ml Vial IVP 12/15/22 04:22 Q4H PRN PRN Nausea / Vomiting Sodium Chloride 0 ml 11/15/22 06:00 Normal Saline Flush 10 Ml Syr IV 11/15/22 23:59 PRN PRN Sodium Chloride 0 ml 11/15/22 06:00 Normal Saline 10 Ml Vial IJ 11/15/22 23:59 DIRECTED PRN Sterile Water 0 ml 11/15/22 06:00 Water,Injection,Sterile 10 Ml Vial IJ 09/29/23 23:59 DIRECTED PRN PFSH Active Problems Active Problems: Problem Status Onset Code NSTEMI (non-ST elevated myocardial infarction) ~08/2018 I21.4 Erectile dysfunction 02/25/17 N52.9 Excessive consumption of ethanol 01/23/16 F10.10 Tubular adenoma 09/25/15 D36.9 White coat syndrome without hypertension 01/23/16 R03.0 Nonobstructive atherosclerosis of coronary artery I25.10 Chest pain R07.9 DVT prophylaxis Z29.9 Tobacco abuse Z72.0 Demand ischemia of myocardium I24.8 Hypertension I10 Hypertensive emergency I16.1 Medical History Medical History Nicotine dependence Surgical History Surgical History Arthroplasty of knee Colonoscopy - IV Sedation (09/25/15) Dr. Crystal Salmeron Tobacco Smoking/Tobacco Use Status: Current every day Tobacco Type: cigarettes Smoking cigarettes per day: 20 Passive smoking exposure: No Second hand exposure: Yes Alcohol Alcohol Intake: current Alcohol intake frequency: 0-2 drinks per day Alcohol type: beer Substance Use Substance use: Rarely Substance use type: marijuana Details: alcohol t-2 Vital Signs and Lab Results Vital Signs Most Recent Vital Signs in EMR: Most Recent Vital Signs Temp Pulse Resp BP Pulse Ox 36.7 C 55 L 18 148/84 H 98 11/15/22 09:27 11/15/22 09:27 11/15/22 09:27 11/15/22 09:27 11/15/22 09:27 Lab Results Blood Type / Crossmatch: No Data to Display Complete Blood Count: No Data to Display Complete Metabolic Panel: No Data to Display Liver Function Panel: No Data to Display Coagulation Panel: No Data to Display Cardiac Panel: No Data to Display Arterial Blood Gas: No Data to Display Venous Blood Gas: No Data to Display Pancreas Panel: No Data to Display Thyroid Panel: No Data to Display Infectious Disease: No Data to Display Blood Cultures: No Data to Display Toxicology Panel: No Data to Display Anesthesia Assessment and Plan Anesthesia History Personal History: No History of Anesthesia Complications Family History: No Family History of Anesthesia Complications Exercise Tolerance Exercise Tolerance: Metabolic Equivalents>4 Pertinent Negatives Pertinent Negatives: No Symptoms of GERD, No Major Cardiovascular Symptoms or Complaints and No Major Pulmonary Symptoms or Complaints Cardiac & Pulmonary Exam Cardiac Exam: Normal S1/S2 Heart Sounds Pulmonary Exam: Clear Bilateral Breath Sounds Implantable Cardiac Device Does patient have a Pacemaker or an ICD?: No Airway Exam Known Difficult Airway: No Mallampati Class: 2 Mouth Opening: Normal (> 3cm) Thyromental Distance: Greater than 3 cm Neck Range of Motion: Full ROM Neck Circumference: Normal Teeth Condition: Normal Dentition (cracked tooth in the back ) ASA Classification ASA Score: ASA 2 Emergency Case?: No NPO Status NPO Status: NPO Clears >2 hours, Solids >8 hours Anesthesia Plan Resuscitation Status: Full Code Anesthesia Technique: General Anesthesia Airway Planned: Natural Airway Monitors Used: Standard Monitors
[2022-11-15 09:52] VITALS: BMI 21.5
--- NOTE | 2022-11-15 10:24 | BOWEL_PTH ---
PATIENT: Wesley Edward LOC: [facility] U#:[id number] AGE/SX: 56/M ROOM: RE11/15/[address]: Kinga Sorensen : 1965 BED: DIS: 11/15/2022 SPEC #: [id number] RECD: 11/15/22 12:24 STATUS: FARRUKH REQ #: [id number] KAYDEN: 11/15/22 10:[address]: Kinga Sorensen DEPT: Surgical Specimen RECD BY: Dora Bowser ENTERED: 11/15/22 12:27 SP TYPE: Bowel OTHR DR: Higinio Rasmussen MD Tissues: 1 - BIOPSY BOWEL Procedures: GROSS AND MICRO LEVEL 4 Comments: [id number]
[2022-11-15 11:00] VITALS: BP 116/81; PULSE 52; RESP 18; TEMP 36.1; O2SAT 100
--- NOTE | 2022-11-15 11:21 | W.ANESPOSTOP ---
Postoperative Evaluation Date, Time and Location Date Performed: 11/15/22 Time Performed: 11:16 Patient Location: Day Surgery Unit Vital Signs Most Recent Imported Vital Signs: Most Recent Vital Signs Temp Pulse Resp BP Pulse Ox 36.1 C L 52 L 18 116/81 100 11/15/22 11:00 11/15/22 11:00 11/15/22 11:00 11/15/22 11:00 11/15/22 11:00 Pain Score Most Recent Pain Score: Most Recent Pain Score Pain Level 0 11/15/22 11:00 Assessment Mental Status: Awake (Alert & Oriented to Patient Baseline) Airway and Respiratory Function: Patent airway with normal (patient baseline) respiratory exam Cardiovascular Function: Hemodynamically Stable Hydration Status: Adequately Hydrated Nausea & Vomiting: No Nausea or Vomiting Pain: Pt. Denies Any Pain Peripheral Nerve Block: Patient did not receive a nerve block
[2022-11-15 11:25] VITALS: BP 146/88; PULSE 49; RESP 18; TEMP 36; O2SAT 99
== END 2022-11-15 12:10 | disposition home or self-care (01) ==
PROVIDERS: PCP Family Medicine; Visit Provider Surgery
PROC: 0DJD8ZZ Inspection of Lower Intestinal Tract, Via Natural or Artificial Opening Endoscopic (ICD-10-PCS; CPT 45378; principal; 2022-11-15 10:30)
DX: Z12.11 Encounter for screening for malignant neoplasm of colon (principal); D12.5 Benign neoplasm of sigmoid colon; K57.30 Diverticulosis of large intestine without perforation or abscess without bleeding; K64.4 Residual hemorrhoidal skin tags; Z86.010 Personal history of colon polyps; I10 Essential (primary) hypertension; F17.210 Nicotine dependence, cigarettes, uncomplicated; I25.2 Old myocardial infarction
CPT/HCPCS: 45385; 45384; 88305; J2001

== ENCOUNTER → 2023-02-13 14:09 | Outpatient (CLI) | payer OTHER, SELFPAY ==
--- NOTE | 2023-02-13 13:15 | DI.RAD_ITS ---
Exam(s) XR SHOULDER LT COMPLETE 2+V EXAM: XR SHOULDER LT COMPLETE 2+V CLINICAL HISTORY: left shoulder pain,m25.512. TECHNIQUE: 2D digital imaging was performed. Three views. COMPARISON: No exams were available for comparison FINDINGS: BONES: No acute fracture is present. No bony destructive lesion is seen. JOINTS: No dislocation present. Mild inferior spurring at the AC joint. No humeral joint space is m aintained. SOFT TISSUE: Normal. IMPRESSION: Mild degenerative changes of the AC joint DATA REPOSITORY: RADIATION DOSE DELIVERED:
== END ==
PROVIDERS: PCP Family Medicine; Visit Provider Family Medicine
DX: M19.012 Primary osteoarthritis, left shoulder (principal)
CPT/HCPCS: 73030

== ENCOUNTER → 2023-03-14 00:56 | Outpatient (CLI) | payer OTHER, SELFPAY ==
--- NOTE | 2023-03-14 10:45 | DI.MRI_ITS ---
Exam(s) MR UPPER JOINT LT WO EXAM: MR UPPER JOINT LT WO CLINICAL HISTORY: ? RTC TEAR,lt shoulder pain,m25.512. TECHNIQUE: Multiplanar multisequence MRI was performed. COMPARISON: Plain films February 08 FINDINGS: BONES: There is no fracture or contusion pattern. Degenerative changes at the anterior humeral head . JOINTS:The acromioclavicular joint shows mild inferior spurring. Spurring at the tip of the acromion . The glenohumeral joint shows moderate to large size effusion. TENDONS: Supraspinatus: Unremarkable. Infraspinatus: Unremarkable. Subscapularis: Tear with retraction. Teres [place]: Unremarkable. Biceps and [place]: Focal high signal within the upper biceps tendon adjacent to superior aspect of th e humeral head.. Normal position. MUSCLES: Unremarkable. GLENOID LABRUM: Unremarkable on this noncontrast examination. SOFT TISSUES: Unremarkable. OTHER: Subacromial and subdeltoid bursae shows no significant fluid. . IMPRESSION: Full thickness tear with retraction of the subscapularis tendon. Joint effusion. Small focal partial tear of the upper biceps tendon DATA REPOSITORY:
== END ==
PROVIDERS: PCP Family Medicine; Visit Provider Student in an Organized Health Care Education/Training Program
DX: M25.512 Pain in left shoulder (principal); M75.122 Complete rotator cuff tear or rupture of left shoulder, not specified as traumatic
CPT/HCPCS: 73221

== ENCOUNTER 2023-04-03 06:01 | Day surgery (SDC) | payer OTHER, SELFPAY ==
[2023-04-03] VITALS (11 sets, daily range): BP systolic 105–171; BP diastolic 56–98; PULSE 44–66; RESP 10–19; TEMP 36.1–37; O2SAT 96–100; BMI 22.1
--- NOTE | 2023-04-03 06:53 | ANES.PREOP_ITS ---
General Info Date of Service Date Performed: 04/03/23 Height: 5 ft 10 in Weight: 70.2 kg Body Mass Index (BMI): 22.1 Surgical Procedure: Operation Date: 04/03/23 07:40 Proposed Procedure Side Surgeon p Shoulder Rotator Cuff Arthroscopic w/Extensive Debridement, Biceps Tenodesis, Subacromial Decompression, Possible Open Tenodesis & Subscapularis Repair Left Aryan Chavez MD Meds Allergies and Home Medications Allergies Allergy/AdvReac Type Severity Reaction Status Date / Time No Known Allergies Allergy Verified 04/03/23 06:16 Home Medication Medication Instructions Recorded aspirin 81 mg tablet,delayed 81 mg PO DAILY 08/21/18 release (Aspir-) nitroglycerin 0.4 mg sublingual 0.4 mg sublingual Q5-15M PRN 08/21/18 tablet multivitamin 1 tab PO DAILY 08/26/18 amlodipine 5 mg tablet 5 mg PO BID #180 tabs 07/04/22 atorvastatin 80 mg tablet 80 mg PO QHS #90 tabs 07/04/22 carvedilol 12.5 mg tablet 12.5 mg PO BID #180 tabs 07/30/22 sildenafil 100 mg tablet 100 mg PO DAILY PRN sexual 02/11/23 activity #12 tabs tramadol 50 mg tablet 50 - 100 mg (1 - 2 x 50 mg) PO QHS 02/25/23 PRN pain #10 tabs Current Visit Medications: Current Medications Generic Name Dose Route Start Last Admin Trade Name Freq PRN Reason Stop Dose Admin Ringer's Solution 1,000 mls @ 30 mls/hr 04/03/23 06:00 IV 04/03/23 23:59 INFUSION [facility] Cefazolin Sodium/Dextrose 2 gm in 50 mls @ 100 mls/hr 04/03/23 06:00 Ancef Duplex IVPB 04/03/23 23:59 PREOP [facility] IV Miscellaneous Supplies 1 each 04/03/23 06:00 Iv Access IV 04/03/23 23:59 DIRECTED [facility] Sodium Chloride 0 ml 04/03/23 06:00 Normal Saline Flush 10 Ml Syr IV 04/03/23 23:59 PRN PRN Sodium Chloride 0 ml 04/03/23 06:00 Normal Saline 10 Ml Vial IJ 04/03/23 23:59 DIRECTED PRN Sterile Water 0 ml 02/15/24 06:00 Water,Injection,Sterile 10 Ml Vial IJ 04/03/23 23:59 DIRECTED PRN [facility] Active Problems Active Problems: Problem Status Onset Code Traumatic partial tear of left biceps tendon S46.212A Bursitis of left shoulder M75.52 Traumatic tear of left rotator cuff ~01/2023 S46.012A Left shoulder pain M25.512 Diverticula of colon K57.30 NSTEMI (non-ST elevated myocardial infarction) ~08/2018 I21.4 Erectile dysfunction 02/25/17 N52.9 Excessive consumption of ethanol 01/23/16 F10.10 Tubular adenoma 09/25/15 D36.9 White coat syndrome without hypertension 01/23/16 R03.0 Nonobstructive atherosclerosis of coronary artery I25.10 Chest pain R07.9 DVT prophylaxis Z29.9 Tobacco abuse Z72.0 Demand ischemia of myocardium I24.8 Hypertension I10 Hypertensive emergency I16.1 Medical History Medical History Nicotine dependence Surgical History Surgical History History of colonoscopy (~10/2022) polups Colonoscopy - IV Sedation (09/25/15) Dr. Crystal Salmeron Arthroplasty of knee Tobacco Smoking/Tobacco Use Status: Current every day Tobacco Type: cigarettes Smoking cigarettes per day: 20 Passive smoking exposure: No Second hand exposure: Yes Alcohol Alcohol Intake: current Alcohol intake frequency: 0-2 drinks per day Alcohol type: beer Substance Use Substance use: Rarely Substance use type: marijuana Vital Signs and Lab Results Vital Signs Most Recent Vital Signs in EMR: Most Recent Vital Signs Temp Pulse Resp BP Pulse Ox 36.6 C 65 16 117/75 96 04/03/23 06:25 04/03/23 06:25 04/03/23 06:25 04/03/23 06:25 04/03/23 06:25 Lab Results Blood Type / Crossmatch: No Data to Display Complete Blood Count: No Data to Display Complete Metabolic Panel: No Data to Display Liver Function Panel: No Data to Display Coagulation Panel: No Data to Display Cardiac Panel: No Data to Display Arterial Blood Gas: No Data to Display Venous Blood Gas: No Data to Display Pancreas Panel: No Data to Display Thyroid Panel: No Data to Display Infectious Disease: No Data to Display Blood Cultures: No Data to Display Toxicology Panel: No Data to Display Anesthesia Assessment and Plan Anesthesia History Personal History: No History of Anesthesia Complications Family History: No Family History of Anesthesia Complications Exercise Tolerance Exercise Tolerance: Metabolic Equivalents>4 Pertinent Negatives Pertinent Negatives: No Symptoms of GERD and No Major Cardiovascular Symptoms or Complaints Cardiac & Pulmonary Exam Cardiac Exam: Normal S1/S2 Heart Sounds Pulmonary Exam: Clear Bilateral Breath Sounds (Distant) Implantable Cardiac Device Does patient have a Pacemaker or an ICD?: No Airway Exam Known Difficult Airway: No Mallampati Class: 2 Mouth Opening: Normal (> 3cm) Thyromental Distance: Greater than 3 cm Neck Range of Motion: Full ROM Neck Circumference: Normal Teeth Condition: Normal Dentition (cracked tooth in the back ) ASA Classification ASA Score: ASA 3 Emergency Case?: No NPO Status NPO Status: NPO Clears >2 hours, Solids >8 hours Anesthesia Plan Resuscitation Status: Full Code Anesthesia Technique: General Anesthesia Airway Planned: Endotracheal Tube Pain Management: Surgeon and patient request nerve block Monitors Used: Standard Monitors and SedLine
[2023-04-03] MEDS: Lactated Ringers 1,000 ML 30 ML IV (07:04)
--- NOTE | 2023-04-03 07:05 | W.PM.DSUDISC ---
Date of service: 04/03/23 Time of Service: 10:00 Discharge Plan Disposition Patient Disposition: Home Condition: Stable Discharge Details Attending Provider: Aryan Chavez Primary Care Provider: Higinio Rasmussen Home Meds and New Rx's Prescriptions: New naproxen 250 mg tablet 250 - 500 mg PO BID PRN (Reason: moderate pain and swelling) Qty: 40 0RF oxycodone 5 mg tablet 5 - 10 mg PO .q4-6h PRN (Reason: severe pain) Qty: 18 0RF Continued multivitamin tablet 1 tab PO DAILY amlodipine 5 mg tablet 5 mg PO BID Qty: 180 3RF atorvastatin 80 mg tablet 80 mg PO QHS Qty: 90 3RF aspirin [Aspir-81] 81 mg tablet,delayed release (DR/EC) 81 mg PO DAILY nitroglycerin 0.4 mg tablet, sublingual 0.4 mg SL Q5-15M PRN carvedilol 12.5 mg tablet 12.5 mg PO BID Qty: 180 3RF Rx Instructions: must administer with a meal/food sildenafil 100 mg tablet 100 mg PO DAILY PRN (Reason: sexual activity) Qty: 12 3RF Rx Instructions: administer 30 minutes to 4 hours before activity Discontinued tramadol 50 mg tablet 50 - 100 mg PO QHS PRN (Reason: pain) Qty: 10 0RF Discharge Instructions Additional Instructions: Surgery: Left shoulder arthroscopy with rotator cuff repair (subscapularis), biceps tenodesis, extensive debridement, and subacromial decompression. Activity: For 6 weeks, you should keep your arm at your side in a neutral position at all times except for physical therapy. Do not try to lift or raise your arm using your own muscles. You should use the sling whenever you are out of the house. You may have to adjust the abduction pillow or remove it for comfort. At home it is best to remove the sling and rest the arm on a pillow at your side or support the operative side with your other hand. You may allow the arm to dangle at your side. A physical therapy prescription will be sent electronically to begin in about 3 weeks. Prescriptions: Resume home Aspirin 81 mg tomorrow Naproxen 250 mg take 1-2 every 12 hours with a meal as needed for moderate pain Oxycodone 5 mg take 1-2 every 4-6 hours as needed for severe pain You may use [id number] Tylenol (acetaminophen) as needed for mild pain. These pain medications may be taken all at once or in different combinations as needed. Also, recommend Colace (docusate) as a stool softener as surgery and pain medicine cause constipation. You may try [id number] diphenhydramine (Benadryl) 25-50 mg nightly as a sleep aid Dressings: Remove shoulder bandage after 3 days. Leave the sticky Steri-Strips in place until they fall off or remove them after you shower. Cover the incisions with Band-Aids or leave them open to air. You may shower after 5 days. Follow-up: 10-[address] Chavez You may take off the leg compression stockings this evening at home. You may also leave them on a few days longer if you have a history of leg swelling or edema. Let us know right away if you develop any redness, drainage, fevers, chest pain, or trouble breathing. Do not drink alcohol or drive for at least 24 hours after anesthesia. Please call the office during business hours with any questions or concerns. Discharge Orders Discharge Orders: Discharge Order (Routine); Ordered 04/03/23 Ordered By: Yara Graham DS: Diagnosis Discharge Diagnosis (1) Traumatic tear of left rotator cuff: Status: Acute (2) Bursitis of left shoulder: Status: Acute (3) Tendinitis of long head of biceps brachii of left shoulder: Status: Acute
[2023-04-03] MEDS: Tranexamic Acid 1,000 MG/10 ML VIAL 1000 MG (08:08)
[2023-04-03] MEDS: ceFAZolin 2 GM/50 ML BAG IVPB (08:17)
[2023-04-03] MEDS: Bupivacaine 0.25% Pres-Free 30 ML VIAL (08:42)
--- NOTE | 2023-04-03 08:42 | W.ANESNERVE ---
Nerve Block Single Injection Procedure Date and Time Date Performed: 04/03/23 Procedure Start: 07:27 Location Where Procedure Performed Procedure Location: Day Surgery Unit Reason Performed: Postoperative Analgesia Requesting Provider: Aryan Chavez Timeout Performed Timeout Performed: Yes Monitoring Used ECG, Blood Pressure, SpO2 and See EMR for corresponding vital signs Sterility Sterility: Hand Hygiene, Surgical Cap, Surgical Mask, Sterile Gloves and Chlorhexidine Sedation Given During Procedure Sedation Given (Indicate Dose Given): Versed IV Dose:: 2mg Patient Mental Status Patient Mental Status: Awake Nerve Block 1st Nerve Block: Laterality: Left Block Type: Interscalene (Low interscalene nerve block, first localized area patient did not tolerate needle advancement, pressure) Ultrasound Image Saved?: Yes Needle / Catheter Used: 80mm SonoPlex II Local Anesthetic Bolus (Indicate Dose Given): Lidocaine used for local infiltration of skin, Injected in 3-5ml increments after negative blood aspiration, Bupivacaine 0.25% Dose:: 15mL and Exparel Dose:: 10mL Additives (Indicate Dose Given): None Ultrasound: Sterile probe cover and gel used Nerve Stimulator: Supplement to Ultrasound use and No twitch or parasthesia noted < 0.5 mA Paresthesia: None Procedure Tolerated: No Complications Procedure Outcome: Successful Procedure Comment: Plan for possible open procedure Performed By: Sally Machado
[2023-04-03] MEDS: EPINEPHrine 10 MG/10 ML ML (10:38)
--- NOTE | 2023-04-03 10:53 | ROE_ITS ---
Date of service: 04/03/23 Time of Service: 08:30 Operative Note Operative Note DATE OF PROCEDURE: 04/03/23 PRE-OP DIAGNOSIS: Left: 1. Rotator cuff tear 2. LHB tendinopathy 3. Bursitis POST-OP DIAGNOSIS: same PROCEDURE: Left shoulder: 1. Rotator cuff repair, CPT# 25050. This involved repair of the subscapularis using sutures and anchor to reattach the rotator cuff back to the footprint of the lesser. 2. Arthroscopic biceps tenodesis, CPT# 23268. This involved arthroscopically suturing and reattaching the long head of the biceps tendon to the proximal humerus at the superior margin of the bicipital groove with a screw at the correct tension. 3. Extensive debridement, CPT# 70640. This involved using arthroscopic hand instruments, power instruments, and radiofrequency instruments to release the anterior capsule, long head of the biceps tendon and debride areas of labral tearing, synovitis, and chondromalacia about the lessor tuberosity and biceps groove within the glenohumeral joint anteriorly, superiorly and posteriorly. 4. Subacromial decompression with partial acromioplasty, CPT# 51918. This involved using arthroscopic power instruments and a radiofrequency wand to comp lete a bursectomy and smooth the undersurface of the acromion. 5. Manipulation under anesthesia, CPT #92777 Insert manipulation under esthesia code The geriatric assistant was medically required in order to help assist in techniques above, which require positioning the arm, holding the arthroscope, and manipulating multiple instruments and sutures at the same time. This cannot be done without the help of an experienced geriatric assistant. SURGEON: Aryan Chavez HEAD WAITER/WAITRESS BANQUET: Yara Graham ANESTHESIA TYPE: Local By Surgeon, General LMA/ETT and Primary Nerve Block Refer to Anesthesia Record ESTIMATED BLOOD LOSS: 10 PATHOLOGY: none sent COMPLICATIONS: None Patient was transported to: PACU Patient's condition: stable Implants: Arthrex: 5.5mm SwiveLocks x 1 Indications: The patient was diagnosed with the above conditions and appropriately indicated for surgical intervention. Please see complete medical record for details. Findings: Exam under anesthesia: Stiffness with limited external rotation about 35 degrees and forward elevation about 115 degrees. Somewhat firm endpoints. Internal Tatian to about 45 degrees at 90 degrees. Glenohumeral joint: Significant synovitis especially anteriorly. Significant injection superior labrum and long head biceps tendon which is otherwise intact. Partial disruption of the [facility] CHL and biceps sling. Unable to visualize [facility], but significant full-thickness subscapularis retracted tear with scarring and limited tissue quality and mobility. Minor anterior undersurface articular supraspinatus tearing. Softening bone and moderate chondromalacia about the biceps and subscapularis lesser tuberosities superior bicipital groove zone of injury. Subacromial space: Significant bursitis, no significant structural tearing, limited visualization Procedure Description: In the operating room, general anesthesia was induced. Bilateral shoulders were examined. The left shoulder demonstrated increased stiffness. A manipulation under anesthesia was done using a short lever arm, directing the arm into both external rotation and forward elevation with gradual readily palpable releases. The arm was brought into 90 degrees of abduction and then releases completed into external and internal rotation. Motion restored in about symmetrical to the contralateral side. Terminal endpoints were exaggerated maintained enough to confirm complete release done. The patient was positioned in the beachchair position. All bony prominences were well-padded. Preoperative antibiotics were administered. The shoulder was prepped and draped in the usual sterile fashion for possible conversion to open shoulder surgery. The correct patient, procedure, and side of the procedure were all verified prior to incision. Starting through the posterior portal a standard complete diagnostic arthroscopy was performed of the glenohumeral joint including inspection of the long head of the biceps, anterior and superior labrum, subscapularis tendon, supraspinatus and infraspinatus tendons, and axillary recess. The glenoid and humeral head cartilage as well as the posterior labrum were inspected from an anterior viewing portal. Significant findings and interventions noted above. Significant time was spent recreating the anterior structures including releasing scarring between the rotator interval anterior capsule and subscapularis. The subscapularis superior margin was carefully dissected off the capsule. It was freed up from both the peripheral and articular sides as best possible. The 30 degree and 70 scope were used to visualize the subcoracoid recess as well as the inferior lesser tuberosity. The lesser tuberosity bone was prepared with removal of bone softening and adjacent chondromalacia between it and the bicipital groove. The partial tearing of the leading edge of the supraspinatus was debrided. The biceps sling partial tearing was debrided as well maintaining the intact structures. The subscapularis was then inspected but demonstrated very limited mobility, was significantly retracted and required undue tension to move laterally. Cathie cannula was inserted directed laterally. Additional liberator and elevators were used taking care to work on the subscapularis more superior anterior to freed up as best possible. Somewhat normal contour was current recreated with modest tension from medial to lateral. The tendon was of relatively poor quality somewhat fraying on attempted manipulation with arthroscopic instruments. Decision was made to proceed with limited arthroscopic repair as opposed to conversion to open given the lack of excursion or tendon quality appropriate for a large open double row subscapularis repair. An all-arthroscopic suprapectoral biceps tenodesis was set up through the anteri or portal using a Loop N Tack method with a SutureTape FiberLink cinched around and through the tendon. The biceps was tenotomized from the labrum repair sutures withdrawn out a percutaneous superior anterolateral portal for later repair. The lesser tuberosity was repaired to optimize bone tendon healing with the plan for 2 single row anchors. The bone was somewhat soft and the tendon somewhat poor so instead a single larger central anchor construct was elected. The 90 degree lasso was used to shuttle a FiberLink suture tape in cinch mode through the upper lateral portion of the Sab scapularis, retrieved out the percutaneous portal for traction and then a FiberTape placed with a lasso centrally through the body of the subscapularis tear. Again, there was somewhat limited tendon excursion and poor tendon quality although once again the reduction in various arm positions and releases were confirmed about 270 degrees about the subscapularis. No additional sutures or anchors could be done more inferiorly or medially to laterally. The undersized punch due to concerning bone quality was used laterally across the lesser tuberosity near the better bone in the bicipital groove. An oversized anchor was then loaded from medial to lateral through the eyelet with the 3 tails of the subscapularis repair sutures and from lateral to medial with the biceps tenodesis repair suture. This anchor was deployed with appropriate tension individualized on both the rotator cuff repair and biceps tenodesis. Fixation was good. The subscapularis was reapposed from capsular to bone, there was no more lift off with posterior humeral lever arm, and was tested and stable through 30 to 40 degrees of external rotation. Normal subscapularis contour was reasonably recreated. The biceps tenodesis was appropriate as well with the secured portion of the tendon adjacent to the superior margin of the bicipital groove. The biceps tendon stump was then looped with one of the sliding safety stitches and then secured additionally across the repair zone with SMC arthroscopic knots. Starting through the posterior portal, the arthroscope was directed into the subacromial space. A lateral 50 yard line lateral portal was omitted. A combination of power instruments and a radiofrequency ablator were used to debride bursitis anteriorly, posteriorly, and laterally as well as expose and smooth bone spurring on the undersurface of the acromion in a limited fashion. Visualization was quite poor. The coracoacromial ligament was partially released. The bursectomy was completed viewing superior anterior lateral and working from posteriorly and the rotator cuff inspected as best possible did not demonstrate any need for repair. Hemostasis was achieved with the ablator as best possible. Bursa and surrounding touch was were significantly inflamed. The shoulder was drained of arthroscopic fluid. All portal sites were copiously irrigated. These incisions were closed using 3-0 Monocryl in a buried fashion and then covered with Mastisol, Steri-Strips, Xeroform, dry gauze, and ABDs. The dressings were covered and secured with Medipore tape. The operative extremity was placed into a sling for immobilization. The patient awoke from anesthesia without complication and was transferred to the recovery room in a stable condition.
--- NOTE | 2023-04-03 11:21 | W.ANESPOSTOP ---
Postoperative Evaluation Date, Time and Location Date Performed: 04/03/23 Time Performed: 11:21 Patient Location: PACU Vital Signs Most Recent Imported Vital Signs: Most Recent Vital Signs Temp Pulse Resp BP Pulse Ox 36.4 C L 54 L 12 108/85 97 04/03/23 11:06 04/03/23 11:06 04/03/23 11:06 04/03/23 11:06 04/03/23 11:06 Pain Score Most Recent Pain Score: Most Recent Pain Score Pain Level 3 04/03/23 11:06 Assessment Mental Status: Awake (Alert & Oriented to Patient Baseline) Airway and Respiratory Function: Patent airway with normal (patient baseline) respiratory exam Cardiovascular Function: Hemodynamically Stable Hydration Status: Adequately Hydrated Nausea & Vomiting: No Nausea or Vomiting Pain: Pain is tolerable per patient (Discomfort noted in left anterior bicep, declines medication at this time) Peripheral Nerve Block: Patient did not receive a nerve block
== END 2023-04-03 13:07 | disposition home or self-care (01) ==
PROVIDERS: PCP Family Medicine; Visit Provider Student in an Organized Health Care Education/Training Program
PROC: (CPT 29827; principal; 2023-04-03 07:30)
DX: S46.012A Strain of muscle(s) and tendon(s) of the rotator cuff of left shoulder, initial encounter (principal); M75.22 Bicipital tendinitis, left shoulder; M75.52 Bursitis of left shoulder; M65.812 Other synovitis and tenosynovitis, left shoulder; M25.612 Stiffness of left shoulder, not elsewhere classified; M94.212 Chondromalacia, left shoulder
CPT/HCPCS: 29827; 29828; 29823; 29826; 76942; C9290; J0131; J0665; J0690; J1100; J1171; J1596; J2001; J2250; J2371; J2405; J2704